=== PATIENT | female | born 1955 | race Caucasian/White ===

== ENCOUNTER → 2016-03-11 | Outpatient (CLI) | payer MEDICARE ==
[2016-03-11 10:12] LABS: EKG EKG PERFORMED
[2016-03-11 10:43] LABS: Appearance,Urine Cloudy (Clear); Bacteria,Urine Rare /hpf; Bilirubin,Urine Negative (Negative); Calcium Oxalate Crystals,Urine Many /hpf; Glucose,Urine (UA) Negative (Negative); Ketones,Urine Trace (Negative); Leukocyte Esterase,Urine Moderate (Negative); Mucus,Urine Rare /hpf; Nitrite,Urine Negative (Negative); PH, Urine 5.5 (5.0-8.0); Particle Count 6170; Protein,Urine Trace (Negative); RBC,Urine 5 /hpf (0-5); Specific Gravity,Urine 1.028 (1.001-1.035); Squamous Epithelial Cell,Urine 12 /hpf (0-4); UA Billing (MACRO vs. MICRO) MICRO; WBC,Urine 3 /hpf (0-5)
[2016-03-11 10:44] LABS: CH 30.4; CHCM 33.2; HCT 38.6 % (34.0-46.0); HDW 2.58; HGB 12.7 gm/dL (11.4-16.0); MCH 30.5 pg (25.0-35.0); MCV 92.4 fL (80.0-100.0); Mean Platelet Volume 7.4; RBC 4.18 m/uL (3.80-5.40); RDW 13.8 % (11.5-15.5); WBC 6.7 k/uL (3.8-10.6)
[2016-03-11 10:51] LABS: ALT 33 U/L (9-52); AST 23 U/L (14-36); Alkaline Phosphatase 69 U/L (38-126); Anion Gap 9 mmol/L; Blood Urea Nitrogen 17 mg/dL (7-17); Calcium 9.8 mg/dL (8.4-10.2); Carbon Dioxide 29 mmol/L (22-30); Chloride 103 mmol/L (98-107); Glucose 94 mg/dL (74-99); Non-African American GFR(MDRD) >60 (>60 ml/min/1.73 sqM); Potassium 4.2 mmol/L (3.5-5.1); Sodium 141 mmol/L (137-145); Total Bilirubin 0.5 mg/dL (0.2-1.3); Total Protein 7.3 g/dL (6.3-8.2)
--- NOTE | 2016-03-11 10:51 | XR ---
EXAMINATION TYPE: XR chest 2V DATE OF EXAM: 03/11/2016 10:46 AM COMPARISON: NONE HISTORY: Shortness of breath TECHNIQUE: Frontal and lateral views of the chest are obtained. FINDINGS: Scattered senescent parenchymal changes noted. Hyperinflation compatible with COPD. No evidence for infiltrate. No evidence for atelectasis. Heart size is stable. Mediastinal structures are stable and grossly unremarkable. No evidence for hilar prominence. Degenerative changes dorsal spine. IMPRESSION: 1. No evidence for acute pulmonary disease.
== END | disposition home or self-care (01) ==
LOC: LABWHC1 10:00
PROVIDERS: ATTEND Neurological Surgery
DX: Z01.818 Encounter for other preprocedural examination (principal); Z01.812 Encounter for preprocedural laboratory examination; M48.06 Spinal stenosis, lumbar region; M79.7 Fibromyalgia; M54.16 Radiculopathy, lumbar region; M21.42 Flat foot [pes planus] (acquired), left foot; M54.9 Dorsalgia, unspecified
CPT/HCPCS: 36415; 71020; 80053; 81001; 85027; 85610; 85730; 87070; 87086; 93005

== ENCOUNTER → 2016-03-22 | Outpatient (CLI) | payer MEDICARE ==
--- NOTE | 2016-03-22 14:44 | US ---
EXAMINATION TYPE: US venous doppler duplex LE BI DATE OF EXAM: 03/22/2016 1:35 PM COMPARISON: NONE CLINICAL HISTORY: Swelling R60.0. Leg swelling S/P back surgery SIDE PERFORMED: Bilateral VESSELS IMAGED: External Iliac Vein (EIV) Common Femoral Vein Deep Femoral Vein Greater Saphenous Vein * Femoral Vein Popliteal Vein Small Saphenous Vein * Proximal Calf Veins (* superficial vessels) TECHNOLOGIST IMPRESSION: wnl Right Leg: Negative for DVT, Probable Armando's Cyst right pop fossa= 6.5 x 1.5 x 3.3 cm Left Leg: Negative for DVT, Probable Armando's Cyst left pop fossa= 5.2 x 1.6 x 3.2 cm Attempted to call Adrien Ugalde NP at Dr Guerrier's office at time of exam, no answer... IMPRESSION: 1. No evidence of deep venous thrombosis lower extremities. 2. Note is made of bilateral popliteal cysts.
== END | disposition home or self-care (01) ==
LOC: RADUSWWP 13:09
PROVIDERS: ATTEND Neurological Surgery
DX: R60.0 Localized edema (principal); Z98.1 Arthrodesis status; Z98.890 Other specified postprocedural states
CPT/HCPCS: 93970

== ENCOUNTER → 2016-05-19 | Outpatient (CLI) | payer MEDICARE ==
--- NOTE | 2016-05-19 15:40 | XR ---
Lumbar spine HISTORY: Back pain 3 views of the lumbar spine There is anterolisthesis grade 1-2 at L4-5, patient is status post L4-5-S1 fusion, laminectomy change is present. Loss of disc height present at the intervertebral levels. Bone mineralization is reduced . Lumbar vertebral bodies show preserved height. Intervertebral spacing material present L4-5. IMPRESSION: Degenerative disc disease, postop change, osteopenia, spondylolisthesis
== END ==
LOC: RADXRMAIN 14:23
PROVIDERS: ATTEND Neurological Surgery
DX: M43.16 Spondylolisthesis, lumbar region (principal); M51.36 Other intervertebral disc degeneration, lumbar region; Z98.1 Arthrodesis status
CPT/HCPCS: 72100

== ENCOUNTER → 2016-06-02 | Outpatient (CLI) | payer MEDICARE ==
--- NOTE | 2016-06-02 09:45 | XR ---
EXAMINATION TYPE: XR abdomen 1V DATE OF EXAM: 06/02/2016 9:34 AM HISTORY: Pain Comparison: 01/18/2016 Single KUB is submitted for interpretation. Findings: Right renal calculi: Recently noted right UPJ calculus not reproduced at this time. Right ureteral calculi: None Visualized. Left renal calculi: None Visualized. Left ureteral calculi: None Visualized. Pelvic calcifications: None Visualized. Bowel gas pattern is unremarkable. No free air. No mass effects. IMPRESSION: 1. No definite evidence for nephrolithiasis or ureterolithiasis.
== END ==
LOC: RADXRMAIN 09:03
PROVIDERS: ATTEND Urology
DX: N20.0 Calculus of kidney (principal)
CPT/HCPCS: 74000

== ENCOUNTER → 2016-06-16 | Outpatient (CLI) | payer MEDICARE ==
--- NOTE | 2016-06-16 13:05 | CT ---
EXAMINATION TYPE: CT abdomen pelvis wo con DATE OF EXAM: 06/16/2016 7:21 AM COMPARISON: NONE INDICATION: Renal stones DLP: 329.70 mGycm, Automated exposure control for dose reduction was used. CONTRAST: 0 mL of Omnipaque 300. Study performed without Oral Contrast TECHNIQUE: Axial images were obtained from above the diaphragm to the pubic rami in the axial plane a t 5 mm thick sections. Reconstructed images are reviewed on the computer in the coronal plane. FINDINGS: Limited CT sections are obtained the lung bases. The lung bases are clear. CT ABDOMEN: Liver: Normal Spleen: Normal Pancreas: Normal Adrenal glands: The adrenal glands are normal. Gallbladder: Normal Kidneys: No masses are evident. No hydronephrosis is present. No cysts are present. No renal or ur eteral stones are identified. Aorta: Vascular calcification is within the aorta. Inferior vena cava: Normal. CT PELVIS: Loops of bowel within the abdomen and pelvis are normal. There are loops of bowel which are incom pletely distended or lack oral contrast limiting their evaluation. Fecal debris is within the distal colon Appendix: Normal as visualized. Urinary bladder: Normal. Genitourinary structures: Osseous structures: No suspicious lytic or sclerotic lesions. Pedicle screws are present L4-S1. IMPRESSIONS: 1. No acute abdominal process. 2. No suspicious renal or ureteral stones evident.
== END | disposition home or self-care (01) ==
LOC: RADCTMAIN 07:03
PROVIDERS: ATTEND Urology
DX: N20.1 Calculus of ureter (principal); R10.9 Unspecified abdominal pain
CPT/HCPCS: 74176

== ENCOUNTER → 2016-08-11 | Outpatient (CLI) | payer MEDICARE ==
--- NOTE | 2016-08-12 11:33 | MM ---
Reason for exam: screening (asymptomatic). Last mammogram was performed 1 year and 1 month ago. History: Patient is postmenopausal and has history of other cancer at age 40. Family history of breast cancer in paternal aunt and premenopausal breast cancer in maternal aunt. Taking estrogen for 5 years 1 month beginning at age 48. Physical Findings: A clinical breast exam by your physician is recommended on an annual basis and results should be correlated with mammographic findings. MG 3D Screening Mammo W/Cad Bilateral CC and MLO view(s) were taken. Prior study comparison: July 21, 2015, bilateral MG 3d screening mammo w/cad. March 19, 2013, bilateral digital screening mammo w/CAD. March 16, 2012, bilateral digital screening mammo w/CAD. The breast tissue is heterogeneously dense. This may lower the sensitivity of mammography. No significant changes when compared with prior studies. ASSESSMENT: Benign, BI-RAD 2 RECOMMENDATION: Routine screening mammogram of both breasts in 1 year.
== END | disposition home or self-care (01) ==
LOC: RADMAMWWP 12:04
PROVIDERS: ATTEND Family Medicine
DX: Z12.31 Encounter for screening mammogram for malignant neoplasm of breast (principal)
CPT/HCPCS: 77063; G0202

== ENCOUNTER → 2016-09-13 | Outpatient (CLI) | payer MEDICARE ==
--- NOTE | 2016-09-13 17:04 | BD ---
EXAMINATION TYPE: MG DEXA axial skeleton. DATE OF EXAM: 09/13/2016 COMPARISON: NONE CLINICAL HISTORY: 61-year-old female postmenopausal screening Height: 64.7 IN Weight: 150 LBS FRAX RISK QUESTIONS: Alcohol (3 or more units per day): NO Family History (Parent hip fracture): NO Glucocorticoids (More than 3mos): NO (Ex: prednisone, prednisolone, methylprednisolone, dexamethasone, and hydrocortisone). History of Fracture in Adulthood: YES RT PATELLA Secondary Osteoporosis: 1. Type 1 Diabetes: NO 2. Hyperthyroidism: NO 3. Menopause before 45: NO AGE 45 4. Malnutrition: NO 5. Chronic liver disease: NO Rheumatoid Arthritis: NO Current Tobacco Use: NO RISK FACTORS HISTORY OF: History of Wrist Fracture: YES LEFT When: AGE 40 Surgery to Spine: AGE 61 When: AGE 61 Active: Postmenopausal woman: AGE 45 Take estrogen and/or progesterone medications: NOT NOW How long: AGE 45 - 52 MEDICATIONS: Additional Medications: HYDROCODONE, CYMBALTA EXAM MEASUREMENTS: Bone mineral densitometry was performed using the [facility]. PT HAD L SPINE SURGERY IN 2016 Bone mineral density about the R hip (g/cm2): 0.851 Bone mineral density about the L hip (g/cm2): 0.897 T Score values are as follows: -----R Neck: -1.3 -----L Neck: -1.0 -----R Total: -1.6 -----L Total: -1.2 Bone mineral density BASELINE IMPRESSION: Osteopenia (T Score between -2.5 and -1 as noted by T score values There is slightly increased risk of fracture and the patient may be considered for treatment. Re-Screen 2-5 years. NOTE: T-SCORE=SD OF THE YOUNG ADULT MEAN.
--- NOTE | 2016-09-14 11:39 | WWHP ---
CHIEF COMPLAINT: The patient is here for her routine gynecologic exam and bone density testing. HPI: This is a 61-year-old G4, P2-0-2-2 with an LMP of 2002. She is status post MARGA BSO for benign reasons. She has been off of ERT since 2013. She is without gynecologic complaints. She has noticed lump in the upper right arm in the area where she had a lipoma removed in the past. PAST MEDICAL HISTORY: Rotator cuff problems, fibromyalgia, osteopenia and restless leg syndrome. MEDICATIONS: Hydrocodone with acetaminophen 5/500 b.i.d. p.r.n., Cymbalta 60 mg 2 daily, Zolpidem 1 q.h.s. p.r.n. for insomnia. ALLERGIES: NO KNOWN DRUG ALLERGIES. PAST SURGICAL HISTORY: Back surgery in 2016, MARGA BSO in 2002 by myself, bilateral shoulder surgery, bilateral arthroscopic knee surgery, left elbow surgery, carpal tunnel surgery, multiple colonoscopies, and the most recent one was in 2010 and right arm lipoma removed in the past. 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 SOCIAL HISTORY: She denies tobacco and drug use and has about two alcohol containing drinks per day. She has been since 2015 and has been with her current boyfriend since 05/05 but does not live with him. FAMILY HISTORY: Unchanged from the 2016 H&P. REVIEW OF SYSTEMS: Weight has been stable. She denies respiratory, cardiac, or GI problems. PHYSICAL EXAM: Blood pressure 143/82, height 5 feet 6 inches, weight 150 pounds. Temperature 98.1, pulse 85. This is a well developed, well nourished white female who is alert and oriented x3 in no acute distress. HEENT is within normal limits. Neck is supple without mass or thyromegaly. Chest and lungs clear to auscultation. Heart: Regular rate and rhythm. Breasts are without mass or discharge. Axillary exam is negative for adenopathy. Back negative for CVA tenderness. Abdomen is soft, nontender without palpable masses. Pelvic exam: External genitalia reveals mild to moderate atrophy without lesions. Vagina reveals mild to moderate atrophy without lesions. There is no evidence of prolapse. Bimanual exam is negative for mass or tenderness. Rectovaginal exam is negative for mass or tenderness and is negative for occult blood. Extremities are nontender, but there is a right arm lipoma in the area over the triceps muscle measuring approximately 4 x 3 cm. This is soft and nontender. This is in the area of her previous scar. IMPRESSION: 1. A 61-year-old menopausal female status post total abdominal hysterectomy with bilateral salpingo-oophorectomy for benign reasons. 2. History of osteopenia. PLAN: 1. PAP smears have been discontinued. 2. Self breast examination was discussed. 3. Mammogram was done on 08/11/16 and this was benign. She will repeat this in one year. 4. Osteoporosis prevention was discussed. she will be doing bone density testing today. 5. Screening colonoscopy is due and she states she will see Dr. Campos for this. She will also see Dr. Campos regarding the recurrence of the right arm lipoma. 6. She will return in one year. ZULEIMA
== END | disposition home or self-care (01) ==
LOC: WWCWWP 13:55
PROVIDERS: ATTEND Obstetrics & Gynecology
DX: M85.80 Other specified disorders of bone density and structure, unspecified site (principal)
CPT/HCPCS: 77080

== ENCOUNTER → 2016-12-29 | Outpatient (CLI) | payer MEDICARE ==
[2016-12-29 11:50] LABS: Basophils # (A) 0.1 k/uL (0-0.2); Basophils % (A) 1 %; CH 30.4; CHCM 32.4; Eosinophils # (A) 0.3 k/uL (0-0.7); Eosinophils % (A) 5 %; HCT 41.4 % (34.0-46.0); HDW 2.45; Luc # (Auto) 0.13; Luc % (Auto) 2; Lymphocytes # (A) 2.6 k/uL (1.0-4.8); Lymphocytes % (A) 37 %; MCH 29.6 pg (25.0-35.0); MCHC 31.4 g/dL (31.0-37.0); MCV 94.3 fL (80.0-100.0); Mean Platelet Volume 6.7; Monocytes # (A) 0.5 k/uL (0-1.0); Monocytes % (A) 6 %; Neutrophils # (A) 3.5 k/uL (1.3-7.7); Neutrophils % (A) 49 %; RBC 4.39 m/uL (3.80-5.40); RDW 13.2 % (11.5-15.5); WBC 7.2 k/uL (3.8-10.6); WBC (Perox) 7.16
[2016-12-29 12:12] LABS: ALT 60 U/L (9-52); AST 38 U/L (14-36); Alkaline Phosphatase 129 U/L (38-126); Anion Gap 9 mmol/L; Blood Urea Nitrogen 20 mg/dL (7-17); Calcium 10.1 mg/dL (8.4-10.2); Carbon Dioxide 25 mmol/L (22-30); Chloride 106 mmol/L (98-107); Glucose 96 mg/dL (74-99); Non-African American GFR(MDRD) >60 (>60 ml/min/1.73 sqM); Potassium 5.3 mmol/L (3.5-5.1); Sodium 140 mmol/L (137-145); Total Bilirubin 0.4 mg/dL (0.2-1.3); Total Protein 7.1 g/dL (6.3-8.2)
== END | disposition home or self-care (01) ==
LOC: LABWHC1 11:09
PROVIDERS: ATTEND Surgery
DX: K80.50 Calculus of bile duct without cholangitis or cholecystitis without obstruction (principal)
CPT/HCPCS: 36415; 80053; 85025

== ENCOUNTER → 2017-09-27 | Outpatient (CLI) | payer MEDICARE ==
--- NOTE | 2017-10-03 17:00 | MM ---
Reason for exam: screening (asymptomatic). Last mammogram was performed 1 year and 2 months ago. History: Patient is postmenopausal and has history of other cancer at age 40. Family history of breast cancer in paternal aunt at age 40 and premenopausal breast cancer in maternal aunt at age 40. Took estrogen for 11 years 1 month beginning at age 48. MG 3D Screening Mammo W/Cad Bilateral CC and MLO view(s) were taken. Prior study comparison: August 11, 2016, bilateral MG 3d screening mammo w/cad. July 21, 2015, bilateral MG 3d screening mammo w/cad. March 19, 2013, bilateral digital screening mammo w/CAD. The breast tissue is heterogeneously dense. This may lower the sensitivity of mammography. There are benign appearing calcifications in the left breast. No suspicious abnormality. No significant new finding since prior exam. ASSESSMENT: Benign, BI-RAD 2 RECOMMENDATION: Routine screening mammogram of both breasts in 1 year.
== END | disposition home or self-care (01) ==
LOC: RADMAMWWP 15:21
PROVIDERS: ATTEND Family Medicine
DX: Z12.31 Encounter for screening mammogram for malignant neoplasm of breast (principal)
CPT/HCPCS: 77063; 77067

== ENCOUNTER 2018-12-30 01:48 | Emergency (ER) | payer MEDICARE ==
[2018-12-30 01:57] VITALS: BP 116/79; PULSE 86; RESP 18; TEMP 97.7
[2018-12-30] MEDS ORDERED: HYDROcodone/APAP 7.5-325MG 1 EACH TAB PO ONE (02:07)
--- NOTE | 2018-12-30 02:10 | ED ---
Fall HPI - General Chief Complaint: Fall Stated Complaint: Broken knee Time Seen by Provider: 12/30/18 02:01 Source: patient Mode of arrival: ambulatory - History of Present Illness Initial Comments: Patient is 63-year-old female presenting to emergency Department with a chief complaint of right knee pain. Patient reports she was painting on a ladder and fell off approximately 3 feet. Patient reports she made initial contact with the right knee. She reports a previous injury of patella fracture on the right knee. Patient has hardware in the right lower extremity due to previous injury. Patient reports the pain is 10/10 and sharp in nature. Patient reports inability to flex or extend the knee. Patient denies taking medication to alleviate the symptoms. - Related Data Home Medications Medication Instructions Recorded Confirmed DULoxetine HCL [Cymbalta] 60 mg PO BID 01/08/16 12/12/16 HYDROcodone/APAP 5-325MG [[place] 1 tab PO QID PRN 01/08/16 12/12/16 5-325] Neupro Patch 2 Mg 1 patch TOPICAL DAILY 12/12/16 12/12/16 Zolpidem [Ambien] 10 mg PO HS PRN 12/12/16 12/12/16 Previous Rx's Medication Instructions Recorded Hydrocodone/Acetaminophen [[place] 1 - 2 each PO Q4HR PRN #30 tab 12/20/16 5-325] Allergies Allergy/AdvReac Type Severity Reaction Status Date / Time aspirin AdvReac Nausea Verified 12/30/18 01:57 ibuprofen [From Motrin] AdvReac Nausea Verified 12/30/18 01:57 morphine AdvReac Vomiting Verified 12/30/18 01:57 Review of Systems ROS Statement: Those systems with pertinent positive or pertinent negative responses have been documented in the HPI. ROS Other: All systems not noted in ROS Statement are negative. Past Medical History Past Medical History: Chest Pain / Angina, Fibromyalgia, GI Bleed, Osteoarthritis (OA) Additional Past Medical History / Comment(s): DEAF RT EAR. DDD IN BACK, RLS, RT URETERAL CALCULUS CURRENTLY. palpitations-WORE A HEART MONITOR FROM , HAS'NT GOTTEN RESULTS BACK YET.COLON POLYPS-NEG,DIVERTICULOSIS, HEMORROIDS,ULCER >30 YEARS AGO, CONSTIPATION, STRESS INCONT OF URINE. History of Any Multi-Drug Resistant Organisms: None Reported Past Surgical History: Back Surgery, Hysterectomy, Orthopedic Surgery Additional Past Surgical History / Comment(s): PÉREZ SHOULDER SURG. PÉREZ KNEE SURG. carpal tunnel RELEASE, RT KNEE WAS SHATTERED HAD SX TO REPAIR, LT KNEE ARTHROSCOPY/MENSCUS SX, COLONOSCOPY/POLYPECTOMY Past Anesthesia/Blood Transfusion Reactions: No Reported Reaction Past Psychological History: No Psychological Hx Reported Smoking Status: Former smoker Past Alcohol Use History: Daily Past Drug Use History: None Reported - Past Family History Mother Family Medical History: Cancer Father Family Medical History: No Reported History General Exam Limitations: no limitations General appearance: alert, in no apparent distress Head exam: Present: atraumatic, normocephalic, normal inspection Eye exam: Present: normal appearance Pupils: Present: normal accommodation Neck exam: Present: normal inspection, full ROM Respiratory exam: Present: normal lung sounds bilaterally Cardiovascular Exam: Present: regular rate, normal rhythm, normal heart sounds Extremities exam: Present: tenderness (Tenderness along the medial aspect of the right knee. Tenderness in the popliteal region as well.), normal capillary refill, joint swelling, other (\ +2 dorsalis pedis and posterior tibialis bilaterally.). Absent: normal inspection (Swelling in the right knee. Palpable deformity on the lateral aspect of her right knee), full ROM (Unable to flex or extend the knee) Back exam: Present: normal inspection, full ROM Neurological exam: Present: alert, oriented X3 Psychiatric exam: Present: normal affect, normal mood Skin exam: Present: warm, intact, normal color Course Vital Signs 12/30/18 01:54 Temperature 97.7 F Pulse Rate 86 Respiratory 18 Rate Blood Pressure 116/79 O2 Sat by Pulse 98 Oximetry Medical Decision Making - Medical Decision Making Patient is 63-year-old female presenting to the emergency department with a chief complaint of right knee pain. Physical examination is indicative of right knee swelling with some soft tissue deformities. Patient has focal tenderness along the medial aspect of the knee in the popliteal region. X-rays indicative of posterior proximal tibial lucency indicating a possible mildly displaced fracture versus chronic changes. Patient given [place]. She reports improvement in symptoms. Knee immobilizer placed. Patient advised to use crutches. Patient will be discharged with a Tylenol 3 starter pack. Patient advised not to drive or operate heavy machinery when taking medication. Strict return parameters were thoroughly discussed patient was understanding and agreeable. Patient advised to follow-up with orthopedics. Patient states she would prefer to go to her orthopedic surgeon who performed the original patellar surgery. Case discussed with physician Disposition Clinical Impression: Fall, Pain and swelling of right knee Disposition: HOME SELF-CARE Condition: Stable Instructions (If sedation given, give patient instructions): Fall Prevention (ED) Additional Instructions: Please follow up with orthopedics. Please return to emergency department if symptoms worsen. Please avoid weightbearing on the right knee. Please use crutches. Is patient prescribed a controlled substance at d/c from ED?: No Referrals: Chente Connell MD [Primary Care Provider] - 1-2 days Time of Disposition: 02:57
--- NOTE | 2018-12-30 02:39 | XR ---
EXAM: XR Right Knee, 3 Views CLINICAL HISTORY: ITS.REASON XR Reason: truma TECHNIQUE: Three views of the right knee. COMPARISON: No relevant prior studies available. FINDINGS: Screws are in place in the patella. Bones/joints: On the lateral view there appears to be lucent lines through the posterior proximal tibia. No significant dislocation. Mild osteoarthrosis. Soft tissues: Unremarkable. IMPRESSION: On the lateral view, there appears to be lucent lines through the posterior proximal tibia. Not well characterized on the anterior view. Cannot exclude mildly displaced fracture versus chronic changes.
[2018-12-30] MEDS ORDERED: ACET/COD 300 MG/30 MG STARTER PACK 6 TAB BTL PO STA (02:54)
== END 2018-12-30 03:24 | disposition home or self-care (01) ==
LOC: EC 01:48
DX: M25.561 Pain in right knee (principal); M25.461 Effusion, right knee; Z79.899 Other long term (current) drug therapy; Z88.5 Allergy status to narcotic agent; Z88.6 Allergy status to analgesic agent; Z87.891 Personal history of nicotine dependence; W11.XXXA Fall on and from ladder, initial encounter
CPT/HCPCS: 99283

== ENCOUNTER → 2019-01-07 | Outpatient (CLI) | payer MEDICARE ==
--- NOTE | 2019-01-07 17:23 | CT ---
EXAMINATION TYPE: CT knee RT wo con DATE OF EXAM: 01/07/2019 COMPARISON: None HISTORY: Right knee injury. CT DLP: 396.6 mGycm Automated exposure control for dose reduction was used. Unenhanced CT of the right knee was performed in the axial coronal and sagittal planes. Bone window settings and soft tissue settings are reviewed . FINDINGS: There is a fracture noted of the lateral tibial plateau with mild fracture depression. Fracture exten ds just medial to the medial intercondylar spine. Fracture depression is estimated at 2 mm. Displacem ent estimated at 1 mm. No additional fractures noted. There is evidence for hemarthrosis. Prior fract ure fixation of the patella. Soft tissue swelling noted. Degenerative joint space narrowing and spurring noted.\ IMPRESSION: 1. Fracture noted of the lateral tibial plateau as discussed above with mild fracture depression and hemarthrosis as noted.
== END | disposition home or self-care (01) ==
LOC: RADCTMAIN 16:36
PROVIDERS: ATTEND Physician Assistant
DX: S82.141A Displaced bicondylar fracture of right tibia, initial encounter for closed fracture (principal); M25.061 Hemarthrosis, right knee

== ENCOUNTER 2019-11-13 20:32 | Emergency (ER) | payer MEDICARE ==
[2019-11-13] MEDS ORDERED: LIDOCAINE 1% INJ 10MG/ML (20 ML MDV) SQ ONE (21:48)
--- NOTE | 2019-11-13 21:55 | ED ---
Head Injury HPI - General Chief complaint: Head Injury Stated complaint: Fall, Chin Lac Time Seen by Provider: 11/13/19 21:00 Source: patient Mode of arrival: wheelchair Limitations: no limitations - History of Present Illness Initial comments: Patient is a 64-year-old female presenting to the emergency department for an injury to her chin after falling in her driveway about 1 hour prior to arrival. Patient states she is walking to the end of her driveway to get her mail when she tripped and fell landing on her chin as well as the left side of her face. Patient denies being on blood thinners. She denies loss of consciousness. She states over the past hour she's been having increasing pain in the left side of her face as well as the left jaw area. She states she has pain with trying to open her jaw. She also admits to stubbing her left great toe. She thinks that's the reason that she fell. She denies any injuries to her lower extremit ies or upper extremities. She denies any abdominal pain, nausea or vomiting. She has no further complaints. - Related Data Home Medications Medication Instructions Recorded Confirmed DULoxetine HCL [Cymbalta] 60 mg PO BID 01/08/16 12/12/16 HYDROcodone/APAP 5-325MG [[place] 1 tab PO QID PRN 01/08/16 12/12/16 5-325] Neupro Patch 2 Mg 1 patch TOPICAL DAILY 12/12/16 12/12/16 Zolpidem [Ambien] 10 mg PO HS PRN 12/12/16 12/12/16 Previous Rx's Medication Instructions Recorded Hydrocodone/Acetaminophen [[place] 1 - 2 each PO Q4HR PRN #30 tab 12/20/16 5-325] Allergies/Adverse reactions: Allergies Allergy/AdvReac Type Severity Reaction Status Date / Time aspirin AdvReac Nausea Verified 11/13/19 20:49 ibuprofen [From Motrin] AdvReac Nausea Verified 11/13/19 20:49 morphine AdvReac Vomiting Verified 11/13/19 20:49 Review of Systems ROS Statement: Those systems with pertinent positive or pertinent negative responses have been documented in the HPI. ROS Other: All systems not noted in ROS Statement are negative. Past Medical History Past Medical History: Chest Pain / Angina, Fibromyalgia, GI Bleed, Osteoarthritis (OA) Additional Past Medical History / Comment(s): DEAF RT EAR. DDD IN BACK, RLS, RT URETERAL CALCULUS CURRENTLY. palpitations-WORE A HEART MONITOR FROM , HAS'NT GOTTEN RESULTS BACK YET.COLON POLYPS-NEG,DIVERTICULOSIS, HEMORROIDS,ULCER >30 YEARS AGO, CONSTIPATION, STRESS INCONT OF URINE. History of Any Multi-Drug Resistant Organisms: None Reported Past Surgical History: Back Surgery, Hysterectomy, Orthopedic Surgery Additional Past Surgical History / Comment(s): PÉREZ SHOULDER SURG. PÉREZ KNEE SURG. carpal tunnel RELEASE, RT KNEE WAS SHATTERED HAD SX TO REPAIR, LT KNEE ARTHROSCOPY/MENSCUS SX, COLONOSCOPY/POLYPECTOMY Past Anesthesia/Blood Transfusion Reactions: No Reported Reaction Past Psychological History: No Psychological Hx Reported Smoking Status: Former smoker Past Alcohol Use History: Daily Past Drug Use History: None Reported - Past Family History Mother Family Medical History: Cancer Father Family Medical History: No Reported History General Exam - General Exam Comments Initial Comments: GENERAL: Patient is well-developed and well-nourished. Patient is nontoxic and in no acute distress, does appear intoxicated. HEAD: Atraumatic, normocephalic. EYES: Pupils equal round and reactive to light, extraocular movements intact, sclera anicteric, conjunctiva are normal. Eyelids were unremarkable. ENT: TMs normal, nares patent, oropharynx clear without exudates. Moist mucous membranes. Patient does have pain with palpation of the left jaw. She is unable to fully open her mouth, secondary to pain. NECK: Normal range of motion, supple without lymphadenopathy or JVD. LUNGS: Unlabored respirations. Breath sounds clear to auscultation bilaterally and equal. No wheezes rales or rhonchi. HEART: Regular rate and rhythm without murmurs, rubs or gallops. ABDOMEN: Soft, nontender, normoactive bowel sounds. No guarding, no rebound. No masses appreciated. : Deferred MUSCULOSKELETAL: Normal extremities with adequate strength and normal range of motion, no pitting or edema. No clubbing or cyanosis. NEUROLOGICAL: Patient is alert and oriented x 3. Motor and sensory are also intact. Cranial nerves II through XII grossly intact. Symmetrical smile. Normal speech, normal gait. PSYCH: Normal mood, normal affect. SKIN: Warm, Dry, normal turgor, no rashes. Patient has a 1 cm laceration to the bottom of her chin, no active bleeding. Limitations: no limitations Course Vital Signs 11/13/19 11/13/19 20:45 23:29 Temperature 97.9 F 97.8 F Pulse Rate 92 80 Respiratory 18 17 Rate Blood Pressure 100/66 115/74 O2 Sat by Pulse 95 95 Oximetry Procedures - Laceration Laceration #1 Consent Obtained: verbal consent Indication: laceration Site: face (chin) Size (cm): 1 Description: linear Depth: simple, single layer Anesthetic Used: lidocaine 1% Anesthesia Technique: local infiltration Amount (mls): 3 Pre-repair: irrigated extensively Type of Sutures: nylon Size of Sutures: 5-0 Number of Sutures: 4 Technique: simple, interrupted Patient Tolerated Procedure: well Medical Decision Making - Medical Decision Making Patient is a 64-year-old female here after falling in her driveway just prior to arrival. She has a 1 cm laceration to her chin, this was cleaned, closed with 4, 5-0 sutures. Patient tolerated procedure well. I did do a brain and facial CT which shows a mildly displaced fracture of the left mandibular condyle with impaction a 5 mm as well as an anterior subluxation of the mandibular condyle. I did discuss these findings with on-call oral surgeon, Dr. Winkler who recommended patient come into his office first thing tomorrow morning. I did discuss these findings with the patient. She can take Tylenol for discomfort. She is in agreement with this plan of care. Patient is stable for discharge. Stitches states he removed in 7-10 days. Return parameters were discussed with the patient she verbalized understanding. Case discussed with Dr. Lyn. Disposition Clinical Impression: Fall, Laceration of chin, Fracture of left condylar process of mandible Disposition: HOME SELF-CARE Condition: Stable Instructions (If sedation given, give patient instructions): Jaw Fracture in Adults (ED) Additional Instructions: Please return to the Emergency Department if symptoms worsen or any other concerns. May take Tylenol for discomfort. Apply ice to the area. Nothing to eat or drink until appointment tomorrow. Follow-up with oral surgeon, Dr. Winkler as discussed. Is patient prescribed a controlled substance at d/c from ED?: No Referrals: Chente Connell MD [Primary Care Provider] - 1-2 days Joe Winkler DDS [STAFF PHYSICIAN] - 1-2 days
--- NOTE | 2019-11-13 23:15 | CT ---
EXAMINATION TYPE: CT brain wo con DATE OF EXAM: 11/13/2019 COMPARISON: None HISTORY: Fall, dizziness, chin laceration. CT DLP: 1522.4 mGycm Automated exposure control for dose reduction was used. Ventricles have normal size. There is no mass effect nor midline shift. There is no sign of intracran ial hemorrhage. The calvarium is intact. There is no evidence of cerebral edema. IMPRESSION: Negative unenhanced head CT scan.
--- NOTE | 2019-11-13 23:25 | CT ---
EXAMINATION TYPE: CT facial bones wo con DATE OF EXAM: 11/13/2019 COMPARISON: None HISTORY: Fall, dizziness, chin laceration. No prior CT DLP: 1522.4 mGycm Automated exposure control for dose reduction was used. Images were obtained from the bottom of the mandible to the top of the frontal sinuses without contra st. There is soft tissue air at the inferior chin consistent with laceration. There is a vertical fractur e through the left mandibular condyle extending to the temporomandibular joint. There is anterior sub luxation of the mandibular condyle on the left side. The zygomatic arches appear normal. The maxilla is intact. There is small mucus retention cyst left maxillary sinus. Nasal bone is intact. Orbital ma rgins are intact. There is no retro-orbital mass. There is normal aeration of the temporal bones. The re is incomplete pneumatization of the right mastoid sinus. There is no evidence of a blowout fracture. The oral pharyngeal structures appear intact. IMPRESSION: There is a mildly displaced fracture of the left mandibular condyle with impaction of 5 mm. There is anterior subluxation of the mandibular condyle. Right mandibular condyle is in normal position and ap pears normal.
[2019-11-13 23:30] VITALS: BP 115/74; PULSE 80; RESP 17; TEMP 97.8
== END 2019-11-14 00:04 | disposition home or self-care (01) ==
LOC: EC 20:32
DX: S02.612A Fracture of condylar process of left mandible, initial encounter for closed fracture (principal); S01.81XA Laceration without foreign body of other part of head, initial encounter; M19.90 Unspecified osteoarthritis, unspecified site; G25.81 Restless legs syndrome; H91.91 Unspecified hearing loss, right ear; Z79.899 Other long term (current) drug therapy; Z88.5 Allergy status to narcotic agent; Z88.6 Allergy status to analgesic agent; Z87.891 Personal history of nicotine dependence; W01.0XXA Fall on same level from slipping, tripping and stumbling without subsequent striking against object, initial encounter; Y93.01 Activity, walking, marching and hiking; Y92.89 Other specified places as the place of occurrence of the external cause
CPT/HCPCS: 70486; 70450; 99283; 12011; J2001

== ENCOUNTER → 2020-02-07 | Outpatient (CLI) | payer MEDICARE ==
--- NOTE | 2020-02-07 12:27 | P.STRESS ---
- Stress Test Note Stress Test Results/Findings: Exam Performed: stress echo exercise Exam Date: 02/07/20 Reason for Exam: CHEST PAIN Height: 5 ft 5 in Weight: 65.9 kg Protocol: STRESS ECHO Stage: 2 Duration of Exercise: 4:00 MINUTES Resting Heart Rate: 93 Resting Blood Pressure: 160/94 Maximum Achieved Heart Rate: 144 Maximum Achieved Blood Pressure: 177/90 85% PMHR: 133 100% PMHR: 156 METS: 5.6 Technologist Comment: Stress Test Results/Findings: Patient underwent exercise stress echo with a Andre protocol treadmill stress test. Patient exercised into Stage 2 for a total of 4 minutes reaching a total of 5.6 METS. Patient's maximum heart rate was 144 which represented 92 % age- predicted maximum heart rate. Stress EKG portion: At baseline patient's EKG showed normal sinus rhythm, normal axis, minimal 0.[address] depression in the inferior leads, Q waves V1 and V2. At peak exercise, EKG showed no significant change from baseline. Stress echo portion: 2-D echocardiogram was performed in the parasternal long, personal short, apical 2 and apical four-chamber views at rest, peak exercise and in recovery. At baseline, echocardiogram showed left ventricular ejection fraction 55% without wall motion abnormalities. With peak exercise, echocardiogram show basal to mid inferior and inferoseptal hypokinesis consistent with ischemia. Conclusions: 1. Abnormal stress echo with exercise induced inferior hypokinesis. 2. Poor exercise capacity.
== END | disposition home or self-care (01) ==
LOC: RADNMMAIN 10:18
PROVIDERS: ATTEND Family Medicine
DX: I51.89 Other ill-defined heart diseases (principal)
CPT/HCPCS: 93351

== ENCOUNTER → 2020-06-30 | Outpatient (CLI) | payer MEDICARE ==
[2020-06-30 08:22] VITALS: BP 133/79; PULSE 84; RESP 18; TEMP 98.1
--- NOTE | 2020-06-30 09:14 | P.HPOB ---
History of Present Illness H&P Date: 06/30/20 Chief Complaint: The patient is here for her routine gynecologic exam and ma mmogram. This is a 65-year-old 0-2 with an LMP of 2002. She is status post MARGA/BSO for benign reasons. She is complaining of vaginal dryness with sexual intercourse. Lubricants have not been very helpful. She is otherwise without complaints. Review of Systems Weight has been stable. She denies respiratory or cardiac problems. GI: She has had some issues with constipation. She denies maltreatment. She has had some issues with falling because of inner ear problems. : she denies any significant problems with urinary leakage. Past Medical History Past Medical History: Chest Pain / Angina, COPD, Fibromyalgia, GI Bleed, Osteoarthritis (OA) Additional Past Medical History / Comment(s): Emphysema. DEAF RT EAR. DDD IN BACK, RLS, RT URETERAL CALCULUS.COLON POLYPS-NEG,DIVERTICULOSIS, HEMORROIDS,ULCER YEARS AGO. Osteopenia. 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 History of Any Multi-Drug Resistant Organisms: None Reported Past Surgical History: Back Surgery, Hysterectomy, Orthopedic Surgery Additional Past Surgical History / Comment(s): MARGA BSO 2002. PÉREZ SHOULDER SURG. PÉREZ KNEE SURG. carpal tunnel RELEASE, RT KNEE WAS SHATTERED HAD SX TO REPAIR, LT KNEE ARTHROSCOPY/MENSCUS SX, COLONOSCOPY 2018(next after 5yr). Past Anesthesia/Blood Transfusion Reactions: No Reported Reaction Past Psychological History: No Psychological Hx Reported Smoking Status: Former smoker Past Alcohol Use History: Daily Additional Past Alcohol Use History / Comment(s): SMOKED FOR 25 YEARS-1 PPD, QUIT 2002 Past Drug Use History: Marijuana Additional Drug Use History / Comment(s): Edible marijuana. She denies smoking marijuana. Additional History: She has been since 2019 and this is her third marriage. She has 3 grandchildren and Omalley in [place]. - Past Family History Mother Family Medical History: Cancer Additional Family Medical History / Comment(s): Colon cancer. Parkinson's disease. A maternal aunt had breast cancer. Father Family Medical History: Cancer Additional Family Medical History / Comment(s): Lungs cancer. A paternal aunt had breast cancer. Medications and Allergies Home Medications Medication Instructions Recorded Confirmed Type DULoxetine HCL [Cymbalta] 60 mg PO BID 01/08/16 06/30/20 History Hydrocodone/Acetaminophen [[place] 1 - 2 each PO Q4HR PRN #30 tab 12/20/16 06/30/20 Rx 5-325] Sifrol Er 1 tab PO HS 06/30/20 06/30/20 History Allergies Allergy/AdvReac Type Severity Reaction Status Date / Time aspirin AdvReac Nausea Verified 06/30/20 08:13 ibuprofen [From Motrin] AdvReac Nausea Verified 06/30/20 08:13 morphine AdvReac Vomiting Verified 06/30/20 08:13 Exam Vital Signs Temp Pulse Resp BP Pulse Ox 06/30/20 08:17 98.1 F 84 18 133/79 100 Intake and Output 06/29/20 06/30/20 06/30/20 22:59 06:59 14:59 Other: Weight 68.492 kg Height 5 feet 5 inches, weight 151 pounds, BMI 25.1. This is a well-developed well-nourished white female who is alert and oriented times 3 in no acute distress. HEENT: Within normal limits. NECK: Supple without mass or thyromegaly. CHEST AND LUNGS: Clear to auscultation. HEART: Regular rate and rhythm. BREASTS: Are without mass or discharge. AXILLARY EXAM: Negative for adenopathy. BACK: Negative for CVA tenderness. ABDOMEN: Soft, nontender, without palpable masses. PELVIC EXAM: External genitalia appears normal with mild to moderate atrophy. Vagina appears normal with mild to moderate atrophy. There is no evidence of prolapse. Bimanual examination is negative for mass or tenderness. RECTAL EXAM: Rectovaginal exam is negative for mass or tenderness and is negative for occult blood. EXTREMITIES: Nontender. IMPRESSION: 1. 65-year-old menopausal female status post MARGA/BSO with normal gynecologic exam. 2. Vaginal dryness with sexual intercourse secondary to genital atrophy. 3. History of osteopenia. PLAN: 1. Pap smears have been discontinued. 2. Self breast awareness was discussed with the patient. 3. Screening mammogram will be done today. 4. Trial of estradiol vaginal cream, 1 g into the vagina 2 times weekly for vaginal dryness. The electronic prescription will be sent to [facility] pharmacy. 5. Osteoporosis prevention was discussed. I have stressed the importance of adequate calcium, vitamin D and regular exercise. Recommended amounts of calcium and vitamin D were also discussed. Bone density testing will be done today. 6. We have discussed ways of dealing with constipation. And suggestions were given. 7. She did receive her flu shot last fall and did complete her Covid vaccination series. 8. The patient was advised to return in 1-2 years for her well woman examination.
--- NOTE | 2020-06-30 12:47 | BD ---
EXAMINATION TYPE: Axial Bone Density DATE OF EXAM: 06/30/2020 COMPARISON: 09.13.2016 CLINICAL HISTORY: 65 YR OLD FEMALE.....ICD-10 CODE: Z78.0 POST MENOPAUSAL Height: 64 Weight: 149 FRAX RISK QUESTIONS: History of Fracture in Adulthood: YES Secondary Osteoporosis: YES 3. Menopause before 45: YES, AT AGE 40 RISK FACTORS HISTORY OF: HX OF LT HAND, AND RT KNEE, JAW BONE, AND ANKLE ALL OVER AGE 50 Surgery to Spine FUSION AND HARDWARE, L4 AND L5 ABOUT 4 YRS AGO Postmenopausal woman: YES, AT ABOUT AGE 40 YRS OLD, TOTAL HYST Take estrogen and/or progesterone medications: YES, FOR ONLY 1 YR, NONE NOW Frequent falls: YES, BALANCE PROBLEMS, LOST HEARING AFTER FLU SHOT Hyperparathyroidism: NO Adrenal Insufficiency: NO MEDICATIONS: Prednisone or other steroids: NEW DIAGNOSIS OF EMPHYSEMA. HAVE NOT USED INHALER AND STEROIDS YET Additional Medications: MULTIVITAMIN, Additional History: MULTIPLE FXS AND EMPHYSEMA, ARTHRITIS EXAM MEASUREMENTS: Bone mineral densitometry was performed using the [employer] System. Bone mineral density about the R hip (g/cm2): 0.748 Bone mineral density about the L hip (g/cm2): 0.838 T Score values are as follows: -----R Neck: -1.7 -----L Neck: -1.3 -----R Total: -2.1 -----L Total: -1.3 Bone mineral density has: Decreased -5.0% since study of: 09.13.2016 FRAX%s: THERE IS A 16.3% CHANCE FOR A MAJOR OSTEOPOROTIC FX AND A 2.1% FOR HIP......PROBABILITY FO R FX IN 10 YRS TIME Bone mineral density about the L Wrist (g/cm2): 0.458 T Score values are as follows: -----Dist. R+U: -1.7 -----Prox. R+U: -2.5 -----Radius total: -3.0 Bone mineral density FIRST SCAN OF WRIST.... IMPRESSION: Osteoporosis (T Score less than -2.5). There is increased fracture risk and therapy is usually indicated based on age. Re-Screen 1-2 years. NOTE: T-SCORE=SD OF THE YOUNG ADULT MEAN.
--- NOTE | 2020-07-01 13:58 | MM ---
Reason for exam: screening (asymptomatic). Last mammogram was performed 2 years and 9 months ago. History: Patient is postmenopausal and has history of other cancer at age 40. Family history of breast cancer in paternal aunt at age 40 and premenopausal breast cancer in maternal aunt at age 40. Took estrogen for 11 years 1 month beginning at age 48. Physical Findings: A clinical breast exam by your physician is recommended on an annual basis and results should be correlated with mammographic findings. MG 3D Screening Mammo W/Cad Bilateral CC and MLO view(s) were taken. Prior study comparison: September 27, 2017, bilateral MG 3d screening mammo w/cad. August 11, 2016, bilateral MG 3d screening mammo w/cad. The breast tissue is heterogeneously dense. This may lower the sensitivity of mammography. No significant changes when compared with prior studies. ASSESSMENT: Benign, BI-RAD 2 RECOMMENDATION: Routine screening mammogram of both breasts in 1 year.
== END ==
LOC: WWCWWP 08:01
PROVIDERS: ATTEND Obstetrics & Gynecology
DX: Z01.419 Encounter for gynecological examination (general) (routine) without abnormal findings (principal); N95.2 Postmenopausal atrophic vaginitis; Z90.710 Acquired absence of both cervix and uterus; Z90.722 Acquired absence of ovaries, bilateral; Z87.39 Personal history of other diseases of the musculoskeletal system and connective tissue; Z78.0 Asymptomatic menopausal state; J44.9 Chronic obstructive pulmonary disease, unspecified; M19.90 Unspecified osteoarthritis, unspecified site; Z80.3 Family history of malignant neoplasm of breast; Z88.6 Allergy status to analgesic agent; Z87.891 Personal history of nicotine dependence; Z12.31 Encounter for screening mammogram for malignant neoplasm of breast
CPT/HCPCS: 77063; 77067; 77080

== ENCOUNTER → 2021-09-21 | Outpatient (CLI) | payer MEDICARE ==
[2021-09-21 11:36] VITALS: BP 170/94; PULSE 94; RESP 17; TEMP 98.7
--- NOTE | 2021-09-21 12:13 | P.HPOB ---
History of Present Illness H&P Date: 09/21/21 Chief Complaint: The patient is here for her routine gynecologic exam. This is a 66-year-old 022 with an LMP of 2002. The patient is status post MARGA/BSO for benign reasons. The patient has not been sexually active because of discomfort with intercourse. She would like to re-start using estrogen vaginal cream. She decided not to use prescription medication for osteoporosis. Review of Systems The patient has gained 6 pounds over the last year. She denies respiratory or cardiac problems. GI: She had a colonoscopy last week and did not have a bowel movement until today when she started having loose stools. She denies abdominal pain. Past Medical History Past Medical History: Chest Pain / Angina, COPD, Fibromyalgia, GI Bleed, Osteoarthritis (OA) Additional Past Medical History / Comment(s): Emphysema. DEAF RT EAR. DDD IN BACK, RLS, RT URETERAL CALCULUS.COLON POLYPS-NEG,DIVERTICULOSIS, HEMORROIDS,ULCER YEARS AGO. Osteoporosis. 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 History of Any Multi-Drug Resistant Organisms: None Reported Past Surgical History: Back Surgery, Hysterectomy, Orthopedic Surgery Additional Past Surgical History / Comment(s): MARGA BSO 2002. PÉREZ SHOULDER SURG. PÉREZ KNEE SURG. carpal tunnel RELEASE, RT KNEE WAS SHATTERED HAD SX TO REPAIR, LT KNEE ARTHROSCOPY/MENSCUS SX, COLONOSCOPY 2021(next after 5yr). Past Anesthesia/Blood Transfusion Reactions: No Reported Reaction Past Psychological History: No Psychological Hx Reported Additional Psychological History / Comment(s): PT LIVES ALONE IN 2 STORY HOME THAT HAS 5 PORCH STEPS. NO PETS. PT IS INDEPENDANT. Smoking Status: Former smoker Past Alcohol Use History: Daily (1 drink per day) Additional Past Alcohol Use History / Comment(s): SMOKED FOR 25 YEARS-1 PPD, QUIT 2002 Past Drug Use History: Marijuana Additional Drug Use History / Comment(s): Edible marijuana. She denies smoking marijuana. Additional History: She has been since 2019 and this is her third marriage. She has 3 grandchildren and Omalley in [place]. - Past Family History Mother Family Medical History: Cancer Additional Family Medical History / Comment(s): Colon cancer. Parkinson's disease. A maternal aunt had breast cancer. Father Family Medical History: Cancer Additional Family Medical History / Comment(s): Lungs cancer. A paternal aunt had breast cancer. Medications and Allergies Home Medications Medication Instructions Recorded Confirmed Type DULoxetine HCL [Cymbalta] 60 mg PO BID 01/08/16 09/21/21 History Hydrocodone/Acetaminophen [[place] 1 - 2 each PO Q4HR PRN #30 tab 12/20/16 09/21/21 Rx 5-325] Estradiol Cream [Estrace Cream 1 gm VAGINAL DIRECTED #1 tube 06/30/20 09/21/21 Rx 0.01%] Sifrol Er 1 tab PO HS 06/30/20 09/21/21 History Allergies Allergy/AdvReac Type Severity Reaction Status Date / Time aspirin AdvReac Nausea Verified 09/21/21 11:31 ibuprofen [From Motrin] AdvReac Nausea Verified 09/21/21 11:31 morphine AdvReac Vomiting Verified 09/21/21 11:31 Exam Vital Signs Temp Pulse Resp BP Pulse Ox 09/21/21 11:32 98.7 F 94 17 170/94 97 Intake and Output 09/20/21 09/21/21 09/21/21 22:59 06:59 14:59 Other: Weight 71.214 kg Height 5 feet 6 inches, weight 157 pounds, BMI 25.3. This is a well-developed well-nourished white female who is alert and oriented times 3 in no acute distress. HEENT: Within normal limits. NECK: Supple without mass or thyromegaly. CHEST AND LUNGS: Clear to auscultation. HEART: Regular rate and rhythm. BREASTS: Are without mass or discharge. AXILLARY EXAM: Negative for adenopathy. BACK: Negative for CVA tenderness. ABDOMEN: Soft, nontender, without palpable masses. PELVIC EXAM: External genitalia appears normal with moderate atrophy. Vagina appears normal to moderate atrophy. There is no evidence of prolapse. Bimanual examination is negative for mass or tenderness. RECTAL EXAM: Was refused by the patient. She declined this test because she states she just recently had a colonoscopy and has also been having loose stools. EXTREMITIES: Nontender. IMPRESSION: 1. 66-year-old menopausal female status post MARGA/BSO for benign reasons with normal gynecologic exam. 2. History of osteoporosis. The patient is declining prescription medication for this. 3. Dyspareunia with vaginal dryness. The patient would like to restart using estrogen vaginal cream. PLAN: 1. Pap smears have been discontinued. 2. Self breast awareness was discussed with the patient. We have also discussed symptoms associated with inflammatory breast cancer. 3. Screening mammogram is scheduled for tomorrow. The order slip was given to the patient for this. 4. Osteoporosis management was discussed. I have stressed the importance of adequate calcium, vitamin D and regular exercise. Recommended amounts of calcium and vitamin D were also discussed. We have again discussed prescription medication for osteoporosis and she is declining this. She will call if she changes her mind. We will plan on repeating bone density testing in 1 year and at that time she can again reconsider medication. 5. Estradiol vaginal cream 1 g 2 times weekly. The electronic prescription will be sent to [facility] pharmacy. 6. She was advised to return in one year for her annual well woman exam.
== END | disposition home or self-care (01) ==
LOC: WWCWWP 11:25
PROVIDERS: ATTEND Obstetrics & Gynecology
DX: Z53.9 Procedure and treatment not carried out, unspecified reason (principal)

== ENCOUNTER → 2021-09-22 | Outpatient (CLI) | payer MEDICARE ==
--- NOTE | 2021-09-23 07:49 | MM ---
Reason for Exam: Screening (asymptomatic). Last mammogram was performed 1 year(s) and 3 month(s) ago. Patient History: Menarche at age 13. First Full-Term at age 26. Left ovary removed at age 48. Right ovary removed at age 48. Hysterectomy at age 48. Postmenopausal. Other cancer, age 40. Estrogen for 11 years, 1 month, from age 48 until age 59. Paternal aunt had breast cancer, age 40. Maternal aunt had breast cancer, age 40. Risk Values: Suellen 5 year model risk: 1.9%. NCI Lifetime model risk: 6.7%. Prior Study Comparison: 08/11/2016 Bilateral Screening Mammogram, [facility]. 09/27/2017 Bilateral Screening Mammogram, [facility]. 06/30/2020 Bilateral Screening Mammogram, [facility]. Tissue Density: The breast tissue is heterogeneously dense. This may lower the sensitivity of mammography. Findings: Analyzed By CAD. There is no suspicious group of microcalcifications or new suspicious mass in either breast. Stable benign calcification within the left breast. No significant change from prior examination. Overall Assessment: Benign, BI-RAD 2 Management: Screening Mammogram of both breasts in 1 year. A clinical breast exam by your physician is recommended on an annual basis and results should be correlated with mammographic findings. Electronically signed and approved by: Rick Aguilera D.O.
== END | disposition home or self-care (01) ==
LOC: RADMAMWWP 08:03
PROVIDERS: ATTEND Obstetrics & Gynecology
DX: Z12.31 Encounter for screening mammogram for malignant neoplasm of breast (principal)
CPT/HCPCS: 77063; 77067

== ENCOUNTER → 2022-01-25 | Outpatient (CLI) | payer MEDICARE ==
--- NOTE | 2022-01-25 09:13 | CT ---
EXAMINATION TYPE: CT shoulder LT wo con DATE OF EXAM: 01/25/2022 COMPARISON: None HISTORY: 66-year-old female M19.012, pain, Primary osteoarthritis, left shoulder TECHNIQUE: Contiguous axial scanning of the left shoulder without IV contrast. Coronal and sagittal r econstructions performed. 3-D reconstructions generated on a dedicated independent workstation. CT DLP: 300.4 mGycm Automated exposure control for dose reduction was used. FINDINGS: Prominent bony spurring from the anterior greater tuberosity. The majority of the cuff appears to be intact. There may be minimal fatty streaks in the supraspinatus muscle belly but overall rotator cuff tendon volume is maintained. Large spur from the anterior acromion or ossification along the acromio clavicular ligament. There is severe degenerative change at the glenohumeral joint. Mild overall glenoid bone loss. Slat Pickler ior subluxation of the glenohumeral joint has resulted in a biconvex contour due to bony remodeling, refer to axial image 251. There is 12 degrees of retroversion along the posterior convex portion. Aga in, refer to axial image 251. Prominent fluid along the bicipital groove. The AC joint appears intact. No os acromiale. No Hill-Sachs deformity. Underlying mild emphysematous change in the visualized left hemithorax. IMPRESSION: 1. SEVERE LEFT GLENOHUMERAL JOINT OA. THERE IS SLIGHT POSTERIOR SUBLUXATION AT THE JOINT RESULTING IN PREFERENTIAL BONY REMODELING ALONG THE POSTERIOR HALF OF THE BONY GLENOID WITH OVERALL MILD GLENOID BONE LOSS AND 12 DEGREES OF RETROVERSION ALONG THE POSTERIOR CONVEX PORTION (AXIAL IMAGE 251). 2. THERE MAY BE A PARTIAL TEAR OF THE ANTERIOR SUPRASPINATUS TENDON. THE VAST MAJORITY OF THE CUFF AP PEARS TO BE INTACT THOUGH ASSESSMENT IS LIMITED BY CT.
== END | disposition home or self-care (01) ==
LOC: RADCTMAIN 06:50
PROVIDERS: ATTEND Orthopaedic Surgery Sports Medicine
DX: M19.012 Primary osteoarthritis, left shoulder (principal); S43.022A Posterior subluxation of left humerus, initial encounter; M50.31 Other cervical disc degeneration, high cervical region; M50.33 Other cervical disc degeneration, cervicothoracic region

== ENCOUNTER → 2022-02-08 | Outpatient (CLI) | payer MEDICARE ==
[2022-02-08 13:43] LABS: Partial Thromboplastin Time 24.2 sec (22.0-30.0); Prothrombin Time 10.2 sec (9.0-12.0)
[2022-02-08 14:52] LABS: Appearance,Urine Clear (Clear); Bilirubin,Urine Negative (Negative); Blood,Urine Negative (Negative); Color,Urine Yellow; Glucose,Urine (UA) Negative (Negative); Ketones,Urine Negative (Negative); Leukocyte Esterase,Urine Negative (Negative); Nitrite,Urine Negative (Negative); Protein,Urine Negative (Negative); Specific Gravity,Urine 1.019 (1.001-1.035); Urobilinogen,Urine <2.0 mg/dL (<2.0)
[2022-02-08 18:00] LABS: HCT 38.9 % (37.2-46.3); HGB 13.2 g/dL (12.0-15.0); MCH 30.5 pg (27.0-32.0); MCHC 33.9 g/dL (32.0-37.0); MCV 89.8 fL (80.0-97.0); Mean Platelet Volume 9.6 fL (9.5-12.2); NRBC Per 100 WBC 0 /100 WBCS (0.0-0.0); Platelet Count 382 X 10*3/uL (140-440); RBC 4.33 X 10*6/uL (4.10-5.20); RDW 13.8 % (11.5-14.5); WBC 6.43 X 10*3/uL (4.50-10.00)
[2022-02-08 18:52] LABS: African American GFR (CKD) 104.6 (60.0-200.0); Albumin 4.7 g/dL (3.8-4.9); Albumin/Globulin Ratio 2.04 (1.60-3.17); Anion Gap 11.7 mmol/L (10.00-18.00); BUN/Creat Ratio 27.86 Ratio (12.00-20.00); Blood Urea Nitrogen 19.5 mg/dL (9.0-27.0); Calcium 9.5 mg/dL (8.7-10.3); Carbon Dioxide 23.3 mmol/L (20.0-27.5); Globulin 2.3 g/dL (1.6-3.3); Non-African American GFR(CKD) 90.3 (60.0-200.0); Potassium 4.5 mmol/L (3.5-5.5); Total Bilirubin 0.5 mg/dL (0.30-1.20)
== END | disposition home or self-care (01) ==
LOC: LABPAT 11:55
PROVIDERS: ATTEND Orthopaedic Surgery Sports Medicine
DX: Z01.812 Encounter for preprocedural laboratory examination (principal); M19.012 Primary osteoarthritis, left shoulder
CPT/HCPCS: 80053; 81003; 85027; 85610; 85730; 87070; 93005

== ENCOUNTER 2022-03-03 05:40 | Observation (INO) | payer MEDICARE ==
[2022-02-28 16:00] VITALS: BMI 25.4
[~2022-03-03 05:40] MED LIST: ACETAMINOPHEN TAB 500 MG TAB PO PRN; GABAPENTIN 300 MG CAP PO PRN; MELOXICAM 7.5 MG TAB PO PRN; ONDANSETRON 4 MG/2 ML VIAL IVP PRN; TRANEXAMIC ACID IN NACL,ISO-OS 1,000 MG in SALINE 1 100ML.BAG IVPB PRN
[2022-03-03] MEDS ORDERED: DEXAMETHASONE SOD PHOSPHATE 4 MG/ML 1 ML VIAL IV ONE (05:53)
[2022-03-03] MEDS ORDERED: ONDANSETRON 4 MG/2 ML VIAL IVP ONE (05:53)
[2022-03-03] MEDS ORDERED: LIDOCAINE 1% (10MG/ML) FOR IV START INTRADERMA PRN (05:53)
[2022-03-03] MEDS: LACTATED RINGERS 1,000 ML IV SCH ×3 (05:59→22:10)
[2022-03-03] MEDS ORDERED: MIDAZOLAM 2 MG/2 ML VIAL IVP ONE (06:42)
[2022-03-03] MEDS ORDERED: HYDROmorphone 0.5 MG/0.5 ML SYRINGE IVP PRN ×3 (07:00→09:29)
[2022-03-03] MEDS ORDERED: PHENYLEPHRINE-0.9% NACL SYG 1,000 MCG/10 ML SYRINGE ONE (07:04)
[2022-03-03] MEDS ORDERED: DEXAMETHASONE SOD PHOSPHATE 4 MG/ML 1 ML VIAL ONE (07:04)
[2022-03-03] MEDS ORDERED: LIDOCAINE 2% INJ 20 MG/ML (2 ML VIAL) ONE (07:04)
[2022-03-03] MEDS ORDERED: GLYCOPYRROLATE 0.2 MG/ML 2 ML VIAL ONE (07:04)
[2022-03-03] MEDS ORDERED: SUCCINYLCHOLINE CHLORIDE 200 MG/10 ML VIAL IV ONE (07:04)
[2022-03-03] MEDS ORDERED: PROPOFOL 10 MG/ML 20 ML VIAL IV ONE (07:04)
[2022-03-03] MEDS ORDERED: fentaNYL (PF) 50 MCG/ML 2 ML AMP ONE (07:04)
[2022-03-03] MEDS ORDERED: NEOSTIGMINE 1 MG/ML 10 ML VIAL ONE (07:04)
[2022-03-03] MEDS ORDERED: TRANEXAMIC ACID IN NACL,ISO-OS 1,000 MG/100 ML BAG ONE (07:04)
[2022-03-03] MEDS ORDERED: ROCURONIUM 10 MG/ML (5 ML VIAL) IV ONE (07:04)
[2022-03-03] MEDS ORDERED: ROPIVACAINE 5 MG/ML 30 ML VIAL ONE (07:04)
[2022-03-03] MEDS ORDERED: VANCOMYCIN 1,000 MG VIAL MISCELLANE ONE (07:42)
[2022-03-03] MEDS ORDERED: ceFAZolin 1,000 MG in SODIUM CHLORIDE 0.9% 1,000 ML IRRIGATION ONE (07:42)
[2022-03-03] MEDS ORDERED: METOCLOPRAMIDE 5 MG/ML 2 ML VIAL IVP PRN (09:29)
[2022-03-03] MEDS ORDERED: TEMAZEPAM 15 MG CAP PO PRN (09:29)
[2022-03-03] MEDS ORDERED: ONDANSETRON 4 MG/2 ML VIAL IVP PRN (09:29)
[2022-03-03] MEDS ORDERED: SENNOSIDES-DOCUSATE SODIUM 1 EACH TAB PO PRN (09:29)
[2022-03-03] MEDS ORDERED: diphenhydrAMINE 25 MG CAP PO PRN (09:29)
[2022-03-03] MEDS ORDERED: HYDROcodone/APAP 10-325MG 1 EACH TAB PO PRN ×2 (09:33)
--- NOTE | 2022-03-03 10:19 | XR ---
EXAMINATION TYPE: XR shoulder limited LT DATE OF EXAM: 03/03/2022 COMPARISON: NONE HISTORY: 67-year-old female postoperative evaluation TECHNIQUE: Single AP view FINDINGS: Image shows placement of reverse left shoulder arthroplasty. There is some widening at the AC joint but no abnormal offset. Postsurgical change within reverse left shoulder arthroplasty. Both glenosphere and humeral stem components of the prosthesis appear well seated with appropriate alignme nt. Scattered soft tissue air related to recent operation. IMPRESSION: 1. Uncomplicated appearance to the reverse left total shoulder arthroplasty. 2. AC joint widening could be postsurgical or old posttraumatic change. Clinically correlate.
--- NOTE | 2022-03-03 10:48 | P.ANPRN ---
Procedure Note - Anesthesia - Nerve Block Performed Left Interscalene Single Time Out Performed: Yes Date of Procedure: 03/03/22 Procedure Start Time: 06:41 Procedure Stop Time: 06:46 Location of Patient: PreOp Indication: Acute Post-Operative Pain, Requested by Surgeon Sedation Type: Sedate with meaningful contact maintained Preparation: Sterile Prep Position: Supine Needle Types: Pajunk Needle Gauge: 21 Ultrasound used to visualize needle placement: Yes Ultrasound used to observe medication spread: Yes Blood Aspirated: No Pain Paresthesia on Injection Noted: No Resistance on Injection: Normal Image Stored and Saved: Yes Events: Uneventful and Well Tolerated (Ropivacaine 0.5% 20 mL plus dexamethasone 4 mg)
--- NOTE | 2022-03-03 11:01 | OP ---
OPERATIVE REPORT BELL VALET: Wilman Kelley PA-C PREOPERATIVE DIAGNOSIS: Left shoulder osteoarthrosis. POSTOPERATIVE DIAGNOSIS: Left shoulder osteoarthrosis. OPERATION: Left reverse total shoulder arthroplasty. ANESTHESIA: General endotracheal. ESTIMATED BLOOD LOSS: 100 mL. DRAINS: None. COMPLICATIONS: None apparent. DISPOSITION: Postanesthesia care unit. INDICATIONS FOR PROCEDURE: Yasmine is a very pleasant 67-year-old female with longstanding left shoulder pain. She had a previous open rotator cuff repair done many years ago. Workup including x- rays and CT scan revealed advanced osteoarthrosis of the left shoulder. Rotator cuff arthropathy was evident as well as a B2 type glenoid. At this point, she feels that she has failed conservative management and she would like to proceed with operative intervention. The risks of procedure were discussed in detail. These risks included, but are not limited to risk of infection, nerve damage, bleeding, pain, instability in the shoulder, loosening of the implants and deep infection. There is also risk of deep vein thrombosis which could lead to fatal pulmonary embolism. The patient understands the risks. All of her questions with regard to the procedure were answered to her satisfaction. Appropriate informed consent was obtained. DESCRIPTION OF PROCEDURE: The patient was identified in the preoperative holding area. Surgical site was marked by both the patient and myself. She was given 2 grams of Ancef IV prophylactic purposes. She was then transported to the operative suite. She was placed supine on the operating room table. A general anesthetic was then administered and dosed per the Anesthesia Department without apparent complication. Examination under anesthesia was then performed of the left shoulder. She had elevation to 120 degrees. External rotation to the side was to 30 degrees. The patient was then placed into the beach chair position well-padded in preparation for surgery. Great care was taken to ensure that her cervical spine was in neutral alignment, well-padded and maintained that way throughout the operative procedure. Great care was also taken to ensure that her legs were appropriately padded as well. The patient's left upper extremity was then prepped and draped in usual sterile fashion. Standard surgical pause was undertaken to ensure that we were operating the correct site and that appropriate preoperative antibiotics were given. All staff in the room were in agreement and we proceeded. The acromion, AC joint, clavicle and coracoid were marked with a surgical pen. A planned incision starting at the level of the clavicle and extending distally over the deltopectoral interval approximately 1 cm lateral to the coracoid was marked with a surgical pen. The incision was then made with a 10 blade scalpel. Dissection was carried down sharply to the deltoid fascia. The deltopectoral interval was then identified at the level of clavicle. A small band retractor was then placed onto the proximal deltoid. I then released the deltoid fascia on the lateral aspect of the cephalic vein. The vein was then left in its bed medially. The cephalic vein was then protected throughout the entire case. I then identified the clavipectoral fascia. This was incised proximally to the level of the coracoacromial ligament. The coracoacromial ligament was left intact. We then used my finger to spread the interval between the conjoint tendon and subscapularis. I felt for the axillary nerve which was readily palpable. I then cleared the subacromial and subdeltoid spaces of bursal and scar tissue. I then utilized a brown retractor to hold the deltoid and expose the humeral head. I then proceeded to release the subscapularis in the anterior inferior shoulder capsule. The rotator cuff was inspected. She had chronic tearing of the supraspinatus. The rotator interval was identified. The course of the biceps tendon was also identified. I then released the rotator interval. This released at the base of the coracoid and then all laterally. The subscapularis and the capsule were then released intratendinously. The subscapularis and capsule release extended distally in a lazy-S fashion approximately 1 cm medial to the biceps tendon. I then continued to release the capsule along the inferior neck in a vertical fashion to approximately the 6 o'clock position. Great care was taken to ensure the capsule was always visualized as it was released as to avoid injuring the axillary nerve root. I then brought the Townsend head turbine operator with the arm externally rotated and abducted. I continued to release the capsule inferomedially to approximately the 4 o'clock position. The inferior osteophytes were now removed as well. This was done with a rongeur. I then proceeded with preparation of the proximal humerus. I removed all the goat's hines osteophytes. I then removed the subchondral plate from the superior aspect of the humeral head utilizing a large rongeur. I then used the starting reamer to gain access to the humeral canal. This was approximately 1 cm medial to the rotator cuff insertion and 1 cm posterior to the bicipital groove. I then prepared the humeral canal with hand reaming. I started with a 6 mm reamer and incrementally progressed until firm resistance was encountered at 11 mm. The reamer handle was then left in place. I then utilized a humeral resection guide set at 30 degrees of retrotorsion. The cutting block was then set approximately 1 to 2 mm above the insertion of the rotator cuff. I then proceed to osteotomize the humeral head with the oscillating saw. I removed the resection guide and then completed the osteotomy. I then proceeded with trial stem placement. Trial size 11 was then broached in the canal starting with a 6 mm broach and then incrementally increasing up to the 11 mm broach. The 11 mm trial stem was then left in place. Again, she had deficient rotator cuff. She also had a B2 glenoid. We proceeded with reverse total shoulder arthroplasty. At this point, I did release the biceps tendon. It was tenotomized at the level of the superior labrum. It was tenodesed into the proximal bicipital groove utilizing interrupted 0 Vicryl sutures. I then used a bone hook to pull the humerus out laterally. I inspected the joint for any loose bodies. The condition of the cuff was again inspected. She did have a chronic tear of the anterior supraspinatus. The Bhattman retractor was then placed on the posterior glenoid rim. The arm was placed approximately 80 degrees of abduction and in slight flexion on a Townsend stand. I then proceeded to remove the hypertrophic labrum to definitively identify the actual glenoid. I then utilized a mini-base plate guide. The pin was then placed proximally in the center of the glenoid with approximately 10 degrees of inferior tilt. I then proceeded to ream with the mini base plate reamer. Minimal reaming was done as possible as to preserve as much subchondral bone as possible. I then had the media sales representative open a mini base plate. This was then impacted into the actual glenoid. I then placed a 25 mm central screw. This screw had excellent purchase in bone and I was able to rotate the scapula through the screwdriver when the screw was fully seated. I then proceeded to place peripheral locking screws. These were 5 mm peripheral locking screws. The inferior screw was 25 mm. The anterior posterior and superior screws were 15 mm. I then had the media sales representative open a size 36 glenosphere. The offset was done to slightly inferiorize the actual glenosphere. The Cervantes taper was dried and the real glenosphere was impacted onto the mini base plate. I then proceeded to trial with the real glenosphere. A standard tray standard poly was then placed onto the stem. The shoulder was then reduced. It was mildly difficult reduction. The shoulder was stable throughout a full range of motion. There was no impingement noted. The conjoint tendon was of normal tension. The shoulder was then carefully redislocated. I made the decision to proceed with a standard tray and standard polyethylene. The media sales representative then opened a size 11 Biomet mini stem, a standard tray and a standard poly. The mini stem was then impacted into the canal in approximately 30 degrees of retrotorsion. The Cervantes taper was dried. The standard tray and poly were then assembled on the back table and then the tray was then impacted onto the real stem onto a dry Cervantes taper. The shoulder was then reduced. Again it was a mildly difficult reduction. It was stable through full range of motion. There was no impingement noted. The conjoint tendon was of normal tension. I then felt for the axillary nerve which was readily palpable. At this point, we proceeded with closure. The wound was thoroughly irrigated with sterile saline solution with antibiotic added via pulse lavage. We also used IrriSept antiseptic wash. Approximately 500 mg of vancomycin powder was then placed deep in the wound. The deltopectoral interval was then reapproximated with 0 Vicryl interrupted suture. The subcutaneous tissue was then again reirrigated with sterile saline solution with antibiotic added via pulse lavage. The remaining IrriSept was utilized. I then placed the remaining approximately 500 mg of vancomycin powder subcutaneous. The subcutaneous tissue was then closed with 2-0 Vicryl interrupted suture. The skin was closed with a running 3-0 Quill suture. Dermabond was applied to the incision. A sterile dressing was then applied and the left upper extremity was placed into a standard sling. All sponge and needle counts were deemed correct prior to closure. The patient tolerated the procedure without apparent complication. She was transferred to the recovery room in stable condition. MMODL / IJN: [id number] /
[2022-03-03] MEDS: HYDROmorphone 0.5 MG/0.5 ML SYRINGE IVP PRN ×2 (18:09→22:09)
[2022-03-04] MEDS: HYDROmorphone 0.5 MG/0.5 ML SYRINGE IVP PRN ×3 (02:04→11:01)
[2022-03-04 06:20] LABS: Basophils # (A) 0.1 k/uL (0-0.2); Basophils % (A) 1 %; Eosinophils % (A) 0 %; HCT 38.6 % (34.0-46.0); HGB 11.8 gm/dL (11.4-16.0); Hypochromasia Marked; Lymphocytes # (A) 1.9 k/uL (1.0-4.8); Lymphocytes % (A) 17 %; MCH 31.3 pg (25.0-35.0); MCHC 30.6 g/dL (31.0-37.0); MCV 102.3 fL (80.0-100.0); Macrocytosis Slight; Mean Platelet Volume 7.6; Monocytes # (A) 0.7 k/uL (0-1.0); Monocytes % (A) 6 %; Neutrophils # (A) 8.1 k/uL (1.3-7.7); Neutrophils % (A) 73 %; Platelet Count 248 k/uL (150-450); RBC 3.77 m/uL (3.80-5.40); RDW 13.5 % (11.5-15.5); WBC 11.1 k/uL (3.8-10.6)
[2022-03-04 08:05] VITALS: BP 92/60; PULSE 84; RESP 18; TEMP 97.6
--- NOTE | 2022-03-04 08:36 | P.CONS ---
History of Present Illness - Reason for Consult Consult date: 03/04/22 Medical management - Chief Complaint Left shoulder pain - History of Present Illness This 67-year-old white female essentially admitted for left shoulder repair. The patient is seen postop day #1 underlying history of restless leg syndrome stable. The patient does complain of significant postop pain today. No voiding difficulties. Nausea, vomiting or diarrhea. Voiding without difficulty. Review of Systems Constitutional: Denies chills, Denies fever Eyes: denies blurred vision, denies pain Ears, nose, mouth and throat: Denies headache, Denies sore throat Cardiovascular: Denies chest pain, Denies shortness of breath Respiratory: Denies cough Gastrointestinal: Denies abdominal pain, Denies diarrhea, Denies nausea, Denies vomiting Genitourinary: Denies dysuria, Denies hematuria Musculoskeletal: Reports as per HPI Past Medical History Past Medical History: Chest Pain / Angina, COPD, Fibromyalgia, GI Bleed, Osteoarthritis (OA) Additional Past Medical History / Comment(s): Emphysema. DEAF RT EAR. DDD IN BACK, RLS, RT URETERAL CALCULUS.COLON POLYPS-NEG,DIVERTICULOSIS, HEMORROIDS,ULCER YEARS AGO. Osteoporosis,had hospital admission in [place] Feb 2020 for chest pain-stated did not have a heart attack or any cardiac stents but did have a Cardiac Cath and was told by Drs the chest pain was r/t emphysema." History of Any Multi-Drug Resistant Organisms: None Reported Past Surgical History: Back Surgery, Heart Catheterization, Hysterectomy, Orthopedic Surgery Additional Past Surgical History / Comment(s): MARGA BSO 2002. PÉREZ SHOULDER SURG. PÉREZ KNEE SURG. carpal tunnel RELEASE, RT KNEE WAS SHATTERED HAD SX TO REPAIR, LT KNEE ARTHROSCOPY/MENISCUS SX, COLONOSCOPY 2021(next after 5yr). Past Anesthesia/Blood Transfusion Reactions: No Reported Reaction Additional Past Anesthesia/Blood Transfusion Reaction / Comm: no hx blood transfusion Past Psychological History: No Psychological Hx Reported Additional Psychological History / Comment(s): PT LIVES ALONE IN 2 STORY HOME THAT HAS 5 PORCH STEPS. NO PETS. PT IS INDEPENDANT. Smoking Status: Former smoker Past Alcohol Use History: Daily Additional Past Alcohol Use History / Comment(s): SMOKED FOR 25 YEARS-1 PPD, QUIT 2002,drinks 3-4 shots of vodka daily Past Drug Use History: Marijuana Additional Drug Use History / Comment(s): Edible marijuana monthly - Past Family History Mother Family Medical History: Cancer Additional Family Medical History / Comment(s): Colon cancer. Parkinson's disease. A maternal aunt had breast cancer. Father Family Medical History: Cancer Additional Family Medical History / Comment(s): Lungs cancer. A paternal aunt had breast cancer. Medications and Allergies Home Medications Medication Instructions Recorded Confirmed Type DULoxetine HCL [Cymbalta] 60 mg PO BID 01/08/16 02/28/22 History Hydrocodone/Acetaminophen [Hosmer 2 each PO BID PRN 02/28/22 02/28/22 History 5-325] Pramipexole Di-HCl [Pramipexole ER] 0.75 mg PO HS 02/28/22 03/03/22 History Docusate [Colace] 100 mg PO BID #60 capsule 03/03/22 Rx RX: Doxycycline Hyclate 100 mg PO BID #10 tab 03/03/22 Rx Allergies Allergy/AdvReac Type Severity Reaction Status Date / Time aspirin AdvReac Nausea Verified 03/03/22 06:01 ibuprofen [From Motrin] AdvReac Nausea Verified 03/03/22 06:01 morphine AdvReac Vomiting Verified 03/03/22 06:01 Physical Exam Vitals: Vital Signs Temp Pulse Pulse Resp BP BP Pulse Ox 03/04/22 08:00 84 18 03/04/22 07:22 97.6 F 84 18 92/60 95 03/04/22 02:28 97.7 F 88 22 94/60 95 03/03/22 19:52 98 F 86 20 96/61 93 L 03/03/22 15:24 77 16 03/03/22 12:08 89 110/73 95 03/03/22 11:53 77 109/72 95 03/03/22 11:38 83 124/77 93 L 03/03/22 11:23 96 113/73 87 L 03/03/22 11:08 90 111/75 90 L 03/03/22 10:39 99 118/74 94 L 03/03/22 10:23 93 127/83 96 03/03/22 10:02 77 16 132/76 99 03/03/22 09:45 81 16 140/80 99 03/03/22 09:33 80 16 141/85 99 03/03/22 09:19 86 16 132/72 99 03/03/22 09:04 98 F 96 14 156/86 93 L FiO2 03/04/22 08:00 03/04/22 07:22 03/04/22 02:28 03/03/22 19:52 03/03/22 15:24 03/03/22 12:08 03/03/22 11:53 03/03/22 11:38 03/03/22 11:23 03/03/22 11:08 03/03/22 10:39 03/03/22 10:23 03/03/22 10:02 03/03/22 09:45 6 03/03/22 09:33 6 03/03/22 09:19 6 03/03/22 09:04 Intake and Output 03/03/22 03/04/22 03/04/22 22:59 06:59 14:59 Other: Voiding Method Toilet Toilet # Voids 1 - Constitutional General appearance: no acute distress - EENT Eyes: EOMI - Neck Neck: no lymphadenopathy - Respiratory Respiratory: bilateral: diminished - Cardiovascular Rhythm: irregularly irregular Heart sounds: normal: S1, S2 Abnormal Heart Sounds: no S3 Gallop - Gastrointestinal General gastrointestinal: soft, no tenderness - Integumentary Integumentary: no cellulitis - Psychiatric Psychiatric: A&O x's 3 Results CBC & Chem 7: 03/04/22 05:47 Labs: Abnormal Lab Results - Last 24 Hours (Table) 03/04/22 Range/Units 05:47 WBC 11.1 H (3.8-10.6) k/uL RBC 3.77 L (3.80-5.40) m/uL MCV 102.3 H (80.0-100.0) fL MCHC 30.6 L (31.0-37.0) g/dL Neutrophils # 8.1 H (1.3-7.7) k/uL Assessment and Plan (1) Shoulder arthritis Current Visit: Yes Status: Acute Code(s): M19.019 - PRIMARY OSTEOARTHRITIS, UNSPECIFIED SHOULDER SNOMED Code(s): 714027931 (2) Fibromyalgia Current Visit: No Status: Chronic Code(s): M79.7 - FIBROMYALGIA SNOMED Code(s): 654132635 Plan: The patient is postop day #1 for shoulder repair. Reconcile medications. Pain control per surgery. Anticipate discharge today. Appreciate consultation
[2022-03-04] MEDS ORDERED: DULoxetine HCL 60 MG CAPSULE.DR PO SCH (09:00)
[2022-03-04] MEDS: LACTATED RINGERS 1,000 ML IV SCH ×2 (10:12)
[2022-03-04] MEDS ORDERED: oxyCODONE ER 10 MG TAB.ER.12H PO SCH (12:45)
[2022-03-04] MEDS ORDERED: oxyCODONE-APAP 7.5-325MG 1 EACH TAB PO PRN ×2 (12:48)
--- NOTE | 2022-03-04 12:58 | P.DS ---
Providers Date of admission: 03/04/22 08:31 Expected date of discharge: 03/04/22 Attending physician: Bandar Jeronimo Consults: 03/03/22 09:29 Consult Physician Routine Consulting Provider: Chente Connell Consult Reason/Comments: post op medical management Do you want consulting provider notified?: Yes Primary care physician: Chente Connell - Discharge Diagnosis(es) (1) Shoulder arthritis Patient was admitted to the OR on 03/03/22 to undergo a left reverse total shoulder arthroplasty. She had failed conservative measures as an outpatient and desired to proceed with elective surgery after given informed consent. She underwent the above procedure which she tolerated well without complication. Postoperative hospital course has remained without complication. On day of dis charge she is afebrile, vital signs stable, labs within acceptable ranges, tolerating by mouth meds and diet, voiding without difficulty, positive flatus, denies abdominal pain or calf pain, pain is controlled on oral pain medication and has no new complaints. Wound is benign, neurovascular status is intact, calf is soft and nontender, abdomen soft and nontender. Review of systems is negative for numbness, tingling, fever, chills, chest pain, shortness of breath, nausea, vomiting, dizziness, headaches, slurred speech or other. Current Visit: Yes Status: Acute Priority: Medium Procedures: Left reverse TSA Patient Condition at Discharge: Good Plan - Discharge Summary Discharge Rx Participant: No New Discharge Prescriptions: New Docusate [Colace] 100 mg PO BID #60 capsule Doxycycline Hyclate 100 mg PO BID #10 tab Ondansetron [Zofran] 4 mg PO Q8HR PRN #10 tab PRN Reason: Nausea HYDROcodone/APAP 7.5-325MG [Thida 7.5-325] 1 - 2 each PO Q6HR PRN #42 tab PRN Reason: Pain oxyCODONE ER [OxyCONTIN] 10 mg PO Q12HR 5 Days #10 tab No Action DULoxetine HCL [Cymbalta] 60 mg PO BID Pramipexole Di-HCl [Pramipexole ER] 0.75 mg PO HS Hydrocodone/Acetaminophen [Thida 5-325] 2 each PO BID PRN PRN Reason: Pain Discharge Medication List DULoxetine HCL [Cymbalta] 60 mg PO BID 01/08/16 [History] Hydrocodone/Acetaminophen [Thida 5-325] 2 each PO BID PRN 02/28/22 [History] Pramipexole Di-HCl [Pramipexole ER] 0.75 mg PO HS 02/28/22 [History] Docusate [Colace] 100 mg PO BID #60 capsule 03/03/22 [Rx] Doxycycline Hyclate 100 mg PO BID #10 tab 03/03/22 [Rx] HYDROcodone/APAP 7.5-325MG [Thida 7.5-325] 1 - 2 each PO Q6HR PRN #42 tab 03/04/22 [Rx] Ondansetron [Zofran] 4 mg PO Q8HR PRN #10 tab 03/04/22 [Rx] oxyCODONE ER [OxyCONTIN] 10 mg PO Q12HR 5 Days #10 tab 03/04/22 [Rx] Follow up Appointment(s)/Referral(s): Bandar Jeronimo MD [STAFF PHYSICIAN] - 10 Days Activity/Diet/Wound Care/Special Instructions: maintain sling keep wound clean and dry nonweight bearing left upper extremity take meds as directed f/u in office Discharge Disposition: HOME SELF-CARE
[2022-03-04] MEDS ORDERED: PRAMIPEXOLE 0.25 MG TAB PO SCH (21:00)
== END 2022-03-04 16:19 | disposition home or self-care (01) ==
LOC: OR 05:40 → 4SSUR 10:03 → OR 03-04 08:31
PROVIDERS: ADMIT Orthopaedic Surgery Sports Medicine; ATTEND Orthopaedic Surgery Sports Medicine
DX: M19.012 Primary osteoarthritis, left shoulder (principal); M25.712 Osteophyte, left shoulder; J98.4 Other disorders of lung; R63.5 Abnormal weight gain; H53.9 Unspecified visual disturbance; Z87.891 Personal history of nicotine dependence; G25.81 Restless legs syndrome; M79.7 Fibromyalgia; J43.9 Emphysema, unspecified; H91.91 Unspecified hearing loss, right ear; Z87.442 Personal history of urinary calculi; Z87.19 Personal history of other diseases of the digestive system; M81.0 Age-related osteoporosis without current pathological fracture; Z97.3 Presence of spectacles and contact lenses; Z90.710 Acquired absence of both cervix and uterus; Z90.49 Acquired absence of other specified parts of digestive tract; Z98.890 Other specified postprocedural states; Z80.3 Family history of malignant neoplasm of breast; Z80.1 Family history of malignant neoplasm of trachea, bronchus and lung; Z80.0 Family history of malignant neoplasm of digestive organs; Z82.69 Family history of other diseases of the musculoskeletal system and connective tissue; Z79.899 Other long term (current) drug therapy; Z88.6 Allergy status to analgesic agent; Z88.5 Allergy status to narcotic agent
CPT/HCPCS: 64415; 76942; 85025; 88300; 73020; 23472; G0378; C1776; J2250; J3370; J0330; J1100; J2710; J0690 ×2; J2405; J3010; J2795; J2370; J2704; J1170 ×2; J2001

== ENCOUNTER 2022-07-03 09:57 | Emergency (ER) | payer MEDICARE ==
[2022-07-03 10:24] VITALS: RESP 18
[2022-07-03] MEDS ORDERED: SODIUM CHLORIDE 0.9% 1,000 ML IV STA (11:29)
--- NOTE | 2022-07-03 11:45 | ED ---
GI Bleed HPI - General Chief complaint: GI Bleed Stated complaint: poss GI bleed Time Seen by Provider: 07/03/22 11:14 Source: patient Mode of arrival: ambulatory Limitations: no limitations - History of Present Illness Initial comments: Patient is a 67-year-old female presenting with chief complaint of rectal bleeding. Patient states that today she has noticed bleeding from the rectum even without bowel movements. She states that for about a month she has noticed mucus in her stool. She admits to diffuse abdominal cramping. No blood thinners. Surgical history includes complete hysterectomy. Patient has had previous colonoscopies, states that she has had polyps in the past which have been removed. No chest pain or difficulty breathing. No diarrhea or constipation. No abdominal trauma. No fevers or chills. No palpitations or weakness. - Related Data Home Medications Medication Instructions Recorded Confirmed DULoxetine HCL [Cymbalta] 60 mg PO BID 01/08/16 02/28/22 Hydrocodone/Acetaminophen [Castle 2 each PO BID PRN 02/28/22 02/28/22 5-325] Pramipexole Di-HCl [Pramipexole ER] 0.75 mg PO HS 02/28/22 03/03/22 Previous Rx's Medication Instructions Recorded Docusate [Colace] 100 mg PO BID #60 capsule 03/03/22 Doxycycline Hyclate 100 mg PO BID #10 tab 03/03/22 HYDROcodone/APAP 7.5-325MG [Castle 1 - 2 each PO Q6HR PRN #42 tab 03/04/22 7.5-325] Ondansetron [Zofran] 4 mg PO Q8HR PRN #10 tab 03/04/22 oxyCODONE ER [OxyCONTIN] 10 mg PO Q12HR 5 Days #10 tab 03/04/22 Amoxic-Pot Clav 875-125Mg 1 tab PO Q12HR 10 Days #20 tab 07/03/22 [Augmentin 875-125] Amoxic-Pot Clav 875-125Mg 1 tab PO Q12HR 10 Days #20 tab 07/03/22 [Augmentin 875-125] Ondansetron Odt [Zofran Odt] 4 mg PO Q8HR PRN #20 tab 07/03/22 Ondansetron Odt [Zofran Odt] 4 mg PO Q8HR PRN #20 tab 07/03/22 Allergies Allergy/AdvReac Type Severity Reaction Status Date / Time aspirin AdvReac Nausea Verified 07/03/22 10:24 ibuprofen [From Motrin] AdvReac Nausea Verified 07/03/22 10:24 morphine AdvReac Vomiting Verified 07/03/22 10:24 Review of Systems ROS Statement: Those systems with pertinent positive or pertinent negative responses have been documented in the HPI. ROS Other: All systems not noted in ROS Statement are negative. Past Medical History Past Medical History: Chest Pain / Angina, COPD, Fibromyalgia, GI Bleed, Osteoarthritis (OA) Additional Past Medical History / Comment(s): Emphysema. DEAF RT EAR. DDD IN BACK, RLS, RT URETERAL CALCULUS.COLON POLYPS-NEG,DIVERTICULOSIS, HEM ORROIDS,ULCER YEARS AGO. Osteoporosis,had hospital admission in [place] Feb 2020 for chest pain-stated did not have a heart attack or any cardiac stents but did have a Cardiac Cath and was told by Drs the chest pain was r/t emphysema." History of Any Multi-Drug Resistant Organisms: None Reported Past Surgical History: Back Surgery, Heart Catheterization, Hysterectomy, Orthopedic Surgery Additional Past Surgical History / Comment(s): MARGA BSO 2002. PÉREZ SHOULDER SURG. PÉREZ KNEE SURG. carpal tunnel RELEASE, RT KNEE WAS SHATTERED HAD SX TO REPAIR, LT KNEE ARTHROSCOPY/MENISCUS SX, COLONOSCOPY 2021(next after 5yr). Past Anesthesia/Blood Transfusion Reactions: No Reported Reaction Additional Past Anesthesia/Blood Transfusion Reaction / Comment(s): no hx blood transfusion Past Psychological History: No Psychological Hx Reported Smoking Status: Former smoker Past Alcohol Use History: Daily Past Drug Use History: Marijuana - Past Family History Mother Family Medical History: Cancer Additional Family Medical History / Comment(s): Colon cancer. Parkinson's disease. A maternal aunt had breast cancer. Father Family Medical History: Cancer Additional Family Medical History / Comment(s): Lungs cancer. A paternal aunt had breast cancer. General Exam Limitations: no limitations General appearance: alert, in no apparent distress Head exam: Present: atraumatic, normocephalic, normal inspection Eye exam: Present: normal appearance, EOMI. Absent: scleral icterus, periorbital swelling Neck exam: Present: normal inspection, full ROM Respiratory exam: Present: normal lung sounds bilaterally. Absent: respiratory distress, wheezes, rales, rhonchi, stridor Cardiovascular Exam: Present: regular rate, normal rhythm, normal heart sounds. Absent: systolic murmur, diastolic murmur, rubs, gallop, clicks GI/Abdominal exam: Present: soft, tenderness. Absent: distended, guarding, rebound, rigid Rectal exam: Present: normal inspection, normal rectal tone, heme (+) stool (Small amount of blood and mucus seen on inspection) Neurological exam: Present: alert, oriented X3, CN II-XII intact Psychiatric exam: Present: normal affect, normal mood Skin exam: Present: warm, dry, intact, normal color. Absent: rash Course Vital Signs 07/03/22 07/03/22 07/03/22 10:20 12:00 12:06 Temperature 98.0 F Pulse Rate 99 94 Respiratory 18 18 Rate Blood Pressure 141/93 147/90 149/87 O2 Sat by Pulse 99 99 Oximetry 07/03/22 07/03/22 07/03/22 12:30 13:30 14:00 Temperature Pulse Rate Respiratory Rate Blood Pressure 149/87 150/91 153/91 O2 Sat by Pulse 95 97 Oximetry 07/03/22 07/03/22 14:30 15:00 Temperature 98.2 F Pulse Rate 60 Respiratory Rate Blood Pressure 163/103 162/98 O2 Sat by Pulse 94 L 95 Oximetry Medical Decision Making - Medical Decision Making Was pt. sent in by a medical professional or institution (, PA, DIRECTOR OF PURCHASING, urgent care, hospital, or shelter...) When possible be specific @ -No Did you speak to anyone other than the patient for history (EMS, parent, family, police, friend...)? What history was obtained from this source @ -No Did you review nursing and triage notes (agree or disagree)? Why? @ -I reviewed and agree with nursing and triage notes Were old charts reviewed (outside hosp., previous admission, EMS record, old EKG, old radiological studies, urgent care reports/EKG's, shelter records)? Report findings @ -No old charts were reviewed Differential Diagnosis (chest pain, altered mental status, abdominal pain women, abdominal pain men, vaginal bleeding, weakness, fever, dyspnea, syncope, headache, dizziness, GI bleed, back pain, seizure, CVA, palpatations, mental health, musculoskeletal)? @ -[facility] Differential GI Bleed: Esophageal varices, aortoenteric fistula, Lacie-Fine, gastritis, peptic ulcer disease, diverticulosis, inflammatory bowel disease, hemorrhoids, fissure, colitis, malignancy, Meckels diverticulum this is not meant to be an all- inclusive list. EKG interpreted by me (3pts min.). @ -As above X-rays interpreted by me (1pt min.). @ -None done CT interpreted by me (1pt min.). @ -CT shows colitis of the splenic flexure descending colon and proximal sigmoid colon with thickened wall and adjacent inflammatory changes and some minimal free fluid in the paracolic gutter U/S interpreted by me (1pt. min.). @ -None done What testing was considered but not performed or refused? (CT, X-rays, U/S, labs)? Why? @ -None What meds were considered but not given or refused? Why? @ -None Did you discuss the management of the patient with other professionals (professionals i.e. , PA, DIRECTOR OF PURCHASING, lab, RT, psych nurse, social work case manager, health education aide, teacher, residential care officer, case advocate)? Give summary @ -No Was smoking cessation discussed for >3mins.? @ -No Was critical care preformed (if so, how long)? @ -No Were there social determinants of health that impacted care today? How? (Homelessness, low income, unemployed, alcoholism, drug addiction, transportation, low edu. Level, literacy, decrease access to med. care, shelter, rehab)? @ -No Was there de-escalation of care discussed even if they declined (Discuss DNR or withdrawal of care, Hospice)? DNR status @ -No What co-morbidities impacted this encounter? (DM, HTN, Smoking, COPD, CAD, Cancer, CVA, ARF, Chemo, Hep., AIDS, mental health diagnosis, sleep apnea, morbid obesity)? @ -None Was patient admitted / discharged? Hospital course, mention meds given and route, prescriptions, significant lab abnormalities, going to OR and other pertinent info. @ -Patient is a 67-year-old female presenting with chief complaint of rectal bleeding. States that she has had diarrhea and diffuse abdominal pain for several weeks. On physical examination there is some abdominal tenderness noted. Normal rectal exam, small string of mucus and blood noted adjacent to the rectum, occult stool is negative. Hemoglobin is stable at 12.9, patient is not on any blood thinners. CT is positive for colitis. I discussed these findings with the patient. She was given the option of admission or trialing outpatient antibiotics. She opted to try outpatient antibiotics and follow-up with her PCP at her scheduled appointment tomorrow. I believe this is reasonable. She is sent a prescription for Augmentin and Zofran. Follow-up with PCP. Report back to ER with any new or worsening symptoms. Discussed return parameters and answered all questions. Patient conveyed verbal understanding and agreed to the plan. I discussed this case in detail with my attending Dr. Weber Undiagnosed new problem with uncertain prognosis? @ -No Drug Therapy requiring intensive monitoring for toxicity (Heparin, Nitro, Insulin, Cardizem)? @ -No Were any procedures done? @ -No Diagnosis/symptom? @ -Colitis Acute, or Chronic, or Acute on Chronic? @ -Acute Uncomplicated (without systemic symptoms) or Complicated (systemic symptoms)? @ -Uncomplicated Side effects of treatment? @ -No Exacerbation, Progression, or Severe Exacerbation? @ -No Poses a threat to life or bodily function? How? (Chest pain, USA, SD, pneumonia, PE, COPD, DKA, ARF, appy, cholecystitis, CVA, Diverticulitis, Homicidal, Suicidal, threat to staff... and all critical care pts) @ -No - Lab Data Result diagrams: 07/03/22 11:59 07/03/22 11:59 Lab Results 07/03/22 07/03/22 07/03/22 Range/Units 11:59 11:59 11:59 WBC 11.2 H (3.8-10.6) k/uL RBC 4.29 (3.80-5.40) m/uL Hgb 12.9 (11.4-16.0) gm/dL Hct 39.6 (34.0-46.0) % MCV 92.2 (80.0-100.0) fL MCH 30.1 (25.0-35.0) pg MCHC 32.6 (31.0-37.0) g/dL RDW 15.0 (11.5-15.5) % Plt Count 337 (150-450) k/uL MPV 8.0 Neutrophils % 74 % Lymphocytes % 19 % Monocytes % 4 % Eosinophils % 1 % Basophils % 0 % Neutrophils # 8.2 H (1.3-7.7) k/uL Lymphocytes # 2.2 (1.0-4.8) k/uL Monocytes # 0.4 (0-1.0) k/uL Eosinophils # 0.2 (0-0.7) k/uL Basophils # 0.0 (0-0.2) k/uL PT 10.1 (9.0-12.0) sec INR 0.9 (<1.2) APTT 22.9 (22.0-30.0) sec Sodium (137-145) mmol/L Potassium (3.5-5.1) mmol/L Chloride (98-107) mmol/L Carbon Dioxide (22-30) mmol/L Anion Gap mmol/L BUN (7-17) mg/dL Creatinine (0.52-1.04) mg/dL Est GFR (CKD-EPI)AfAm (>60 ml/min/1.73 sqM) Est GFR (CKD-EPI)NonAf (>60 ml/min/1.73 sqM) Glucose (74-99) mg/dL Plasma Lactic Acid Fabio (0.7-2.0) mmol/L Calcium (8.4-10.2) mg/dL Magnesium (1.6-2.3) mg/dL Total Bilirubin (0.2-1.3) mg/dL AST (14-36) U/L ALT (4-34) U/L Alkaline Phosphatase (38-126) U/L Total Protein (6.3-8.2) g/dL Albumin (3.5-5.0) g/dL Lipase (23-300) U/L Stool Occult Blood Negative (Negative) 07/03/22 07/03/22 Range/Units 11:59 11:59 WBC (3.8-10.6) k/uL RBC (3.80-5.40) m/uL Hgb (11.4-16.0) gm/dL Hct (34.0-46.0) % MCV (80.0-100.0) fL MCH (25.0-35.0) pg MCHC (31.0-37.0) g/dL RDW (11.5-15.5) % Plt Count (150-450) k/uL MPV Neutrophils % % Lymphocytes % % Monocytes % % Eosinophils % % Basophils % % Neutrophils # (1.3-7.7) k/uL Lymphocytes # (1.0-4.8) k/uL Monocytes # (0-1.0) k/uL Eosinophils # (0-0.7) k/uL Basophils # (0-0.2) k/uL PT (9.0-12.0) sec INR (<1.2) APTT (22.0-30.0) sec Sodium 137 (137-145) mmol/L Potassium 4.0 (3.5-5.1) mmol/L Chloride 103 (98-107) mmol/L Carbon Dioxide 25 (22-30) mmol/L Anion Gap 9 mmol/L BUN 20 H (7-17) mg/dL Creatinine 0.82 (0.52-1.04) mg/dL Est GFR (CKD-EPI)AfAm 86 (>60 ml/min/1.73 sqM) Est GFR (CKD-EPI)NonAf 74 (>60 ml/min/1.73 sqM) Glucose 109 H (74-99) mg/dL Plasma Lactic Acid Fabio 1.0 (0.7-2.0) mmol/L Calcium 9.5 (8.4-10.2) mg/dL Magnesium 1.9 (1.6-2.3) mg/dL Total Bilirubin 0.8 (0.2-1.3) mg/dL AST 35 (14-36) U/L ALT 29 (4-34) U/L Alkaline Phosphatase 106 (38-126) U/L Total Protein 7.4 (6.3-8.2) g/dL Albumin 4.5 (3.5-5.0) g/dL Lipase 35 (23-300) U/L Stool Occult Blood (Negative) Disposition Clinical Impression: Colitis Disposition: HOME SELF-CARE Condition: Good Instructions (If sedation given, give patient instructions): Colitis (ED) Additional Instructions: Follow-up with PCP at scheduled appointment tomorrow. Report back to ER with any new or worsening symptoms. Take medication as prescribed. Follow bland soft diet for the next few days until symptoms improve Prescriptions: Amoxic-Pot Clav 875-125Mg [Augmentin 875-125] 1 tab PO Q12HR 10 Days #20 tab Amoxic-Pot Clav 875-125Mg [Augmentin 875-125] 1 tab PO Q12HR 10 Days #20 tab Ondansetron Odt [Zofran Odt] 4 mg PO Q8HR PRN #20 tab PRN Reason: Nausea Ondansetron Odt [Zofran Odt] 4 mg PO Q8HR PRN #20 tab PRN Reason: Nausea Is patient prescribed a controlled substance at d/c from ED?: No Referrals: Chente Connell MD [Primary Care Provider] - 1-2 days Time of Disposition: 14:06
[2022-07-03 12:17] LABS: Albumin 4.5 g/dL (3.5-5.0); Calcium 9.5 mg/dL (8.4-10.2); Magnesium 1.9 mg/dL (1.6-2.3); Total Bilirubin 0.8 mg/dL (0.2-1.3); Total Protein 7.4 g/dL (6.3-8.2)
[2022-07-03 12:52] LABS: INR 0.9 (<1.2); Partial Thromboplastin Time 22.9 sec (22.0-30.0); Prothrombin Time 10.1 sec (9.0-12.0)
[2022-07-03 12:55] LABS: Basophils % (A) 0 %; Eosinophils # (A) 0.2 k/uL (0-0.7); Eosinophils % (A) 1 %; HCT 39.6 % (34.0-46.0); HGB 12.9 gm/dL (11.4-16.0); Lymphocytes # (A) 2.2 k/uL (1.0-4.8); Lymphocytes % (A) 19 %; MCH 30.1 pg (25.0-35.0); MCHC 32.6 g/dL (31.0-37.0); MCV 92.2 fL (80.0-100.0); Monocytes # (A) 0.4 k/uL (0-1.0); Monocytes % (A) 4 %; Neutrophils # (A) 8.2 k/uL (1.3-7.7); Neutrophils % (A) 74 %; Platelet Count 337 k/uL (150-450); RBC 4.29 m/uL (3.80-5.40); WBC 11.2 k/uL (3.8-10.6)
[2022-07-03] MEDS ORDERED: KETOROLAC 15 MG/ML 1 ML VIAL IVP STA (13:28)
--- NOTE | 2022-07-03 13:41 | CT ---
EXAMINATION TYPE: CT abdomen pelvis w con DATE OF EXAM: 07/03/2022 COMPARISON: 12/12/2016 INDICATION: Rectal bleeding DLP: 976.5 mGycm, Automated exposure control for dose reduction was used. CONTRAST: 100 ml mL of Isovue 300. Study performed without Oral Contrast TECHNIQUE: Axial images were obtained from above the diaphragm to the pubic rami in the axial plane a t 5 mm thick sections. Reconstructed images are reviewed on the computer in the coronal plane. FINDINGS: Limited CT sections are obtained the lung bases. The lung bases are clear. CT ABDOMEN: Liver: Normal Spleen: Normal Pancreas: Normal Adrenal glands: The adrenal glands are normal. Gallbladder: Surgically absent Kidneys: No masses are evident. No hydronephrosis is present. No cysts are present. Delayed images were obtained through the kidneys, which remain unremarkable. Aorta: Vascular calcification is within the aorta. Inferior vena cava: Normal. CT PELVIS: Splenic flexure and descending colon extending into the proximal sigmoid colon has thickened bhatia wi th some minimal adjacent inflammatory changes. Correlate for colitis. No obstruction is evident. Appendix: Normal as visualized. Urinary bladder: Normal. Genitourinary structures: Uterus is not identified. Adnexa appear normal. Osseous structures: No suspicious lytic or sclerotic lesions. IMPRESSIONS: 1. Colitis of the splenic flexure descending colon and proximal sigmoid colon with thickened wall an d adjacent inflammatory changes and some minimal free fluid in the paracolic gutter.
[2022-07-03] MEDS ORDERED: MORPHINE SULFATE 2 MG/ML SYRINGE IVP STA (14:02)
[2022-07-03] MEDS ORDERED: ONDANSETRON 4 MG/2 ML VIAL IVP STA (14:02)
[2022-07-03] MEDS ORDERED: AMOXIC-POT CLAV 875-125MG 1 EACH TAB PO STA (14:03)
[2022-07-03 15:06] VITALS: BP 162/98; PULSE 60; TEMP 98.2
== END 2022-07-03 15:19 | disposition home or self-care (01) ==
LOC: EC 09:57
DX: K52.9 Noninfective gastroenteritis and colitis, unspecified (principal); M19.90 Unspecified osteoarthritis, unspecified site; Z79.891 Long term (current) use of opiate analgesic; Z88.5 Allergy status to narcotic agent; Z88.6 Allergy status to analgesic agent; Z88.8 Allergy status to other drugs, medicaments and biological substances; Z87.891 Personal history of nicotine dependence
CPT/HCPCS: 36415; 80053; 83605; 83690; 83735; 85025; 85610; 85730; 82272; 74177; 99285; 96374; 96375 ×2; J2405; J2270; J1885; Q9967

== ENCOUNTER → 2022-11-23 | Outpatient (CLI) | payer MEDICARE ==
--- NOTE | 2022-11-23 10:49 | MM ---
Reason for Exam: Additional evaluation requested from abnormal screening. Last screening mammogram was performed less than 1 month ago. Patient History: Menarche at age 13. First Full-Term at age 26. Left ovary removed at age 48. Right ovary removed at age 48. Hysterectomy at age 48. Postmenopausal. Estrogen for 11 years, 1 month, from age 48 until age 59. Paternal aunt had breast cancer, age 40. Maternal aunt had breast cancer, age 40. Risk Values: Suellen 5 year model risk: 1.9%. NCI Lifetime model risk: 6.4%. Prior Study Comparison: 06/30/2020 Bilateral Screening Mammogram, [facility]. 09/22/2021 Bilateral MG 3D screening mammo w/cad, [facility]. 11/15/2022 Bilateral MG 3D screening mammo w/cad, [facility]. Tissue Density: Left: The breast tissue is heterogeneously dense. This may lower the sensitivity of mammography. Findings: Analyzed By CAD. Persistent ovoid 5 mm high density nodule within the upper outer left breast 9 cm from nipple. May represent an intramammary lymph node. No suspicious group of calcifications within the left breast. Benign-appearing calcifications within the left breast. Overall Assessment: Incomplete: need additional imaging evaluation, BI-RAD 0 Management: Diagnostic Breast Ultrasound of the left breast. A clinical breast exam by your physician is recommended on an annual basis and results should be correlated with mammographic findings. This exam should not preclude additional follow-up of suspicious palpable abnormalities. Results were given to the patient verbally at the time of exam. Note on Suellen scores and lifetime risk: 1. A Suellen score greater than 3% is considered moderate risk. If this is the case, consider specialist referral to assess eligibility for a risk reducing agent. If overall lifetime risk for the development of breast cancer is 20% or higher, the patient may qualify for future screening with alternating mammogram and breast MRI. Electronically signed and approved by: Rick Aguilera D.O.
--- NOTE | 2022-11-23 11:35 | USB ---
Reason for Exam: Additional evaluation requested from abnormal screening. Patient History: Menarche at age 13. First Full-Term at age 26. Left ovary removed at age 48. Right ovary removed at age 48. Hysterectomy at age 48. Postmenopausal. Estrogen for 11 years, 1 month, from age 48 until age 59. Paternal aunt had breast cancer, age 40. Maternal aunt had breast cancer, age 40. Risk Values: Suellen 5 year model risk: 1.9%. NCI Lifetime model risk: 6.4%. Technique: Method: Targeted. Prior Study Comparison: 06/30/2020 Bilateral Screening Mammogram, [facility]. 09/22/2021 Bilateral MG 3D screening mammo w/cad, [facility]. 11/15/2022 Bilateral MG 3D screening mammo w/cad, [facility]. Findings: The upper outer quadrant of the left breast, the axilla of the left breast and the retroareolar of the left breast were scanned. Targeted ultrasound of the left breast from 12-3 o'clock with additional evaluation of the nipple and axillary tail was performed. There is a benign lymph node in the left breast at 3:00 9 cm from the nipple measuring 0.5 x 0.5 x 0.3 cm with central fatty hilum. The cortex is not thickened measuring 0.1 cm. This is consistent with a benign intramammary lymph node and corresponds to mammographic finding. Overall Assessment: Benign, BI-RAD 2 Management: Screening Mammogram of both breasts in 1 year. A clinical breast exam by your physician is recommended on an annual basis and results should be correlated with mammographic findings. This exam should not preclude additional follow-up of suspicious palpable abnormalities. Results were given to the patient verbally at the time of exam. Electronically signed and approved by: Rick Aguilera D.O.
== END | disposition home or self-care (01) ==
LOC: RADMAMWWP 10:22
PROVIDERS: ATTEND Obstetrics & Gynecology
DX: R92.8 Other abnormal and inconclusive findings on diagnostic imaging of breast (principal); Z78.0 Asymptomatic menopausal state; Z80.3 Family history of malignant neoplasm of breast
CPT/HCPCS: 77065; 76642; G0279; 77061

== ENCOUNTER → 2022-12-14 | Outpatient (CLI) | payer MEDICARE ==
[~2022-12-14] MED LIST changes: -ACETAMINOPHEN TAB 500 MG TAB PO PRN; -GABAPENTIN 300 MG CAP PO PRN; -MELOXICAM 7.5 MG TAB PO PRN; -ONDANSETRON 4 MG/2 ML VIAL IVP PRN; +REGADENOSON 0.4 MG/5 ML SYRINGE IV PRN; -TRANEXAMIC ACID IN NACL,ISO-OS 1,000 MG in SALINE 1 100ML.BAG IVPB PRN
--- NOTE | 2022-12-14 10:59 | CA ---
Lexiscan Nuclear Stress Test Report Name: Yasmine Linares Exam Date: 12/14/2022 10:19 Exam Location: [place] Stress Ht (in): 66 Wt (lb): 165 BSA: 1.84 Ordering Phys: Chente Connell MD Referring Phys: DELORES, Technologist: Farrukh Martinez Age: 67 Gender: F : 1955 Procedure CPT: Indications: I20.9 Angina ICD-10 Codes: Patient History: CHEST PAIN, DIFFICULTY IN BREATHING, ANGINA, HTN, FORMER SMOKER, EMPHYSEMA Medications: HYDROCODONE, DULOXETINE, AMLODIPINE, PRAMIPEXOLE Meds past 24 hrs: Pretest Chest Pain: STRESS TEST Lexiscan Protocol Exercise Duration (min:sec): 01:[address] Depressions (mm): Angina Score: Baugh Score: Resting HR (bpm): 66 Peak HR (bpm): 78 Resting BP (mmHg): 121 / 70 Peak BP (mmHg): 121 / 70 MPHR: 153 Target HR: 130 % MPHR: 51 METS: 1.0 Total Dose: Peak Dose: Atropine: Double Product: 9438 BP Response: Stress Termination: INFUSION COMPLETE Stress Symptoms: NO SYMPTOMS Stress Summary: ECG ANALYSIS Resting ECG: Stress ECG: CONCLUSIONS RESTING EKG: [Normal sinus rhythm, normal EKG] , Heart rate 64 BPM Patient recieved IV infusion of Lexiscan 0.4mg and at peak infusion STRESS EKG showed: [No significant ST-T wave changes diagnostic for ischemia by ST segment analysis] ARRYTHMIAS: [No ectopic rhythms or sustained arrythmias] CONCLUSION: 1. Normal hemodynamic and heart response to Lexiscan infusion. 2. Normal resting EKG 3. Non-ischemic EKG response to lexiscan infusion 4. Nuclear perfusion imaging is reported separately by the radiology team. Please refer to that report for complete interpretation of this study. Dr Robert Gaitan (Electronically Signed) Final Date: 14 December 2022 10:58
--- NOTE | 2022-12-14 23:31 | NM ---
EXAMINATION TYPE: NM stress lexiscan cardiolite DATE OF EXAM: 12/14/2022 COMPARISON: NONE HISTORY: Angina TECHNIQUE: After the intravenous administration of 9.85 mCi Tc 99m Sestamibi - Cardiolite resting SP ECT images acquired 60 minutes post injection. At peak stress 25.1 mCi Tc 99m Sestamibi - Stress images obtained 30 minutes post injection The patient was stressed with 0.4mg Lexiscan. FINDINGS: No fixed defects are evident No reversible stress defects on Spect images Wall motion is normal Ejection fraction is calculated to be 69 %. IMPRESSION: 1. No stress-induced ischemic changes.
== END | disposition home or self-care (01) ==
LOC: RADNMMAIN 08:08
PROVIDERS: ATTEND Family Medicine
DX: I20.9 Angina pectoris, unspecified (principal); J43.9 Emphysema, unspecified
CPT/HCPCS: 93017; 78452; A9500; J2785

== ENCOUNTER 2023-11-14 11:43 | Day surgery (SDC) | payer MEDICARE ==
[2023-11-08 17:49] VITALS: BMI 25.8
[2023-11-14 12:05] VITALS: TEMP 97
[2023-11-14] MEDS: IV FLUID CONTINUATION 1,000 ML IV ONE (12:08)
[2023-11-14] MEDS: LACTATED RINGERS 1,000 ML IV SCH (12:20)
[2023-11-14] MEDS ORDERED: PROPOFOL 10 MG/ML 20 ML VIAL IV ONE (12:39)
--- NOTE | 2023-11-14 12:40 | P.GSHP ---
History of Present Illness H&P Date: 11/14/23 Chief Complaint: Change in bowel habits, colitis 68-year-old female here for colonoscopy. Patient has had some change in her stools. Her stools are more slimy she states. May be a bit more frequent. Patient had a CAT scan last year showing left-sided colitis. Family history of colon cancer in her mother. She is unsure when her last colonoscopy was. Past Medical History Past Medical History: Chest Pain / Angina, COPD, Fibromyalgia, GI Bleed, Hypertension, Osteoarthritis (OA) Additional Past Medical History / Comment(s): Emphysema. DEAF RT EAR. DDD IN BACK, RLS, RT URETERAL CALCULUS. COLON POLYPS-NEG, DIVERTICULOSIS, HEMORROIDS,ULCER YEARS AGO. History of Any Multi-Drug Resistant Organisms: None Reported Past Surgical History: Back Surgery, Cholecystectomy, Heart Catheterization, Hysterectomy, Orthopedic Surgery Additional Past Surgical History / Comment(s): MARGA BSO 2002. PÉREZ SHOULDER SURG. PÉREZ KNEE SURG. carpal tunnel RELEASE, RT KNEE WAS SHATTERED HAD SX TO REPAIR, LT KNEE ARTHROSCOPY/MENISCUS SX, COLONOSCOPY 2021(next after 5yr). Left shoulder replacement. RT TKA-10/08/23 Past Anesthesia/Blood Transfusion Reactions: No Reported Reaction Additional Past Anesthesia/Blood Transfusion Reaction / Comment(s): no hx blood transfusion Smoking Status: Former smoker - Past Family History Mother Family Medical History: Cancer Additional Family Medical History / Comment(s): Colon cancer. Parkinson's disease. A maternal aunt had breast cancer. Father Family Medical History: Cancer Additional Family Medical History / Comment(s): Lungs cancer. A paternal aunt had breast cancer. Medications and Allergies Home Medications Medication Instructions Recorded Confirmed Type DULoxetine HCL [Cymbalta] 60 mg PO BID 01/08/16 11/08/23 History Hydrocodone/Acetaminophen [[place] 2 each PO BID PRN 02/28/22 11/08/23 History 5-325] amLODIPine [Norvasc] 5 mg PO DAILY 11/15/22 11/08/23 History Pramipexole Di-HCl [Mirapex] 1.5 mg PO HS 11/08/23 11/08/23 History Allergies Allergy/AdvReac Type Severity Reaction Status Date / Time aspirin AdvReac Nausea Verified 11/08/23 17:27 ibuprofen [From Motrin] AdvReac Nausea Verified 11/08/23 17:27 morphine AdvReac Vomiting Verified 11/08/23 17:27 Surgical - Exam Vital Signs Temp Pulse Resp BP Pulse Ox 97 F L 78 20 146/75 96 11/14/23 12:03 11/14/23 12:03 11/14/23 12:03 11/14/23 12:03 11/14/23 12:03 Physical exam: General: Well-developed, well-nourished HEENT: Normocephalic, sclerae nonicteric Abdomen: Nontender, nondistended Extremities: No edema Neuro: Alert and oriented Assessment and Plan (1) Colitis Narrative/Plan: Will proceed with colonoscopy at this time. Current Visit: Yes Status: Acute Code(s): K52.9 - NONINFECTIVE GASTROENTERITIS AND COLITIS, UNSPECIFIED SNOMED Code(s): 61738772
--- NOTE | 2023-11-14 13:01 | P.PCN ---
Date of Procedure: 11/14/23 Procedure(s) Performed: PREOPERATIVE DIAGNOSIS: Change in bowel habits, colitis POSTOPERATIVE DIAGNOSIS: Tortuous colon, otherwise normal PROCEDURE: Colonoscopy ANESTHESIA: MAC SURGEON: Mike Freitas M.D. SPECIMENS: None ENDOSCOPIC PROCEDURE: The patient was placed on the endoscopy table in the left decubitus position. The Olympus colonoscope was inserted into the anus and passed under direct visualization region of the right colon. I could not visualize the cecum with certainty. We came to a tight turn where there appeared to be no further lumen however I could not visualize the valve or the appendiceal orifice with certainty. Numerous position changes and abdominal wall pressures were attempted and I could not visualize the cecum with certainty. The scope was withdrawn from this point. There were no visualized abnormalities throughout the right colon, transverse, descending, sigmoid, or rectum. There was no visible diverticulosis. There was no signs of colitis. Digital rectal examination was normal. The patient was taken to the recovery room in stable condition per anesthesia guidelines. RECOMMENDATIONS: Resume diet. Repeat colonoscopy 5 years given the patient's family history of colon cancer.
[2023-11-14 13:25] VITALS: BP 125/74; PULSE 77; RESP 16
== END 2023-11-14 13:45 | disposition home or self-care (01) ==
LOC: ORWHC2ENDO 11:43
PROVIDERS: ATTEND Surgery
DX: K56.2 Volvulus (principal); Z80.0 Family history of malignant neoplasm of digestive organs; Z87.19 Personal history of other diseases of the digestive system; J43.9 Emphysema, unspecified; M79.7 Fibromyalgia; I10 Essential (primary) hypertension; M19.90 Unspecified osteoarthritis, unspecified site; G25.81 Restless legs syndrome; Z79.899 Other long term (current) drug therapy; Z88.6 Allergy status to analgesic agent; Z88.5 Allergy status to narcotic agent
CPT/HCPCS: 45378

== ENCOUNTER → 2023-11-22 | Outpatient (CLI) | payer MEDICARE ==
--- NOTE | 2023-11-22 13:35 | MM ---
Reason for Exam: Screening (asymptomatic). Last mammogram was performed 1 year(s) and 1 month(s) ago. Patient History: Menarche at age 13. First Full-Term at age 26. Left ovary removed at age 48. Right ovary removed at age 48. Hysterectomy at age 48. Postmenopausal. Estrogen for 11 years, 1 month, from age 48 until age 59. Paternal aunt had breast cancer, age 40. Maternal aunt had breast cancer, age 40. Risk Values: Suellen 5 year model risk: 1.9%. NCI Lifetime model risk: 6.2%. Prior Study Comparison: 09/22/2021 Bilateral MG 3D screening mammo w/cad, [facility]. 11/15/2022 Bilateral MG 3D screening mammo w/cad, [facility]. 11/23/2022 Left MG 3D work up w/cad , [facility]. Tissue Density: There are scattered areas of fibroglandular density. Findings: Analyzed By CAD. Right breast: There is no suspicious group of microcalcifications or new suspicious mass. Left breast: There is no suspicious group of microcalcifications or new suspicious mass. No abnormality correlates with area of pain. Overall Assessment: Incomplete: need additional imaging evaluation, BI-RAD 0 Management: Diagnostic Breast Ultrasound of the left breast. Ultrasound imaging for area of concern in the left breast. [facility] will attempt to contact patient to return for supplemental views and ultrasound if indicated. Patient should continue monthly self-breast exams. A clinical breast exam by your physician is recommended on an annual basis. This exam should not preclude additional follow-up of suspicious palpable abnormalities. Note on Suellen scores and lifetime risk: 1. A Suellen score greater than 3% is considered moderate risk. If this is the case, consider specialist referral to assess eligibility for a risk reducing agent. 2. If overall lifetime risk for the development of breast cancer is 20% or higher, the patient may qualify for future screening with alternating mammogram and breast MRI. [facility], , 11/22/2023 1:32 PM. Electronically signed and approved by: Donavon Wetzel DO
== END | disposition home or self-care (01) ==
LOC: RADMAMWWP 12:47
PROVIDERS: ATTEND Family Medicine
DX: Z12.31 Encounter for screening mammogram for malignant neoplasm of breast
CPT/HCPCS: 77063; 77067

== ENCOUNTER → 2023-11-24 | Outpatient (CLI) | payer MEDICARE ==
--- NOTE | 2023-11-24 10:34 | USB ---
Reason for Exam: Clinical finding. Patient History: Menarche at age 13. First Full-Term at age 26. Left ovary removed at age 48. Right ovary removed at age 48. Hysterectomy at age 48. Postmenopausal. Estrogen for 11 years, 1 month, from age 48 until age 59. Paternal aunt had breast cancer, age 40. Maternal aunt had breast cancer, age 40. Risk Values: Suellen 5 year model risk: 1.9%. NCI Lifetime model risk: 6.2%. Technique: Method: Targeted. Prior Study Comparison: 11/15/2022 Bilateral MG 3D screening mammo w/cad, [facility]. 11/23/2022 Left US breast workup limited LT, [facility]. 11/23/2022 Left MG 3D work up w/cad LT, [facility]. 11/22/2023 Bilateral MG 3D screening mammo w/cad, [facility]. Findings: The lateral section of the breast of the left breast, the axilla of the left breast and the retroareolar of the left breast were scanned. No solid or cystic masses are identified.. Overall Assessment: Negative, BI-RAD 1 Management: Screening Mammogram of both breasts in 1 year. A clinical breast exam by your physician is recommended on an annual basis and results should be correlated with mammographic findings. This exam should not preclude additional follow-up of suspicious palpable abnormalities. Results were given to the patient verbally at the time of exam. [facility], , 11/24/2023 10:31 AM. Electronically signed and approved by: Alen Blackburn M.D. Radiologis
== END | disposition home or self-care (01) ==
LOC: RADUSWWP 09:50
PROVIDERS: ATTEND Family Medicine
DX: R92.8 Other abnormal and inconclusive findings on diagnostic imaging of breast

== ENCOUNTER 2023-11-27 16:35 | Emergency (ER) | payer MEDICARE ==
[2023-11-27 18:27] LABS: ALT 18 U/L (4-34); AST 25 U/L (14-36); African American GFR (CKD) >90 (>60 ml/min/1.73 sqM); Albumin 4.6 g/dL (3.5-5.0); Alkaline Phosphatase 83 U/L (38-126); Amylase 49 U/L (30-110); Anion Gap 5 mmol/L; Blood Urea Nitrogen 11 mg/dL (7-17); Calcium 10.1 mg/dL (8.4-10.2); Carbon Dioxide 28 mmol/L (22-30); Chloride 102 mmol/L (98-107); Glucose 125 mg/dL (74-99); Lipase 55 U/L (23-300); Non-African American GFR(CKD) >90 (>60 ml/min/1.73 sqM); Potassium 4.4 mmol/L (3.5-5.1); Sodium 135 mmol/L (137-145); Total Bilirubin 0.4 mg/dL (0.2-1.3); Total Protein 7.4 g/dL (6.3-8.2)
[2023-11-27 18:34] LABS: Basophils % (A) 0 %; Eosinophils # (A) 0.3 k/uL (0-0.7); Eosinophils % (A) 4 %; HCT 40.2 % (34.0-46.0); HGB 13.4 gm/dL (11.4-16.0); Lymphocytes # (A) 2.3 k/uL (1.0-4.8); Lymphocytes % (A) 28 %; MCH 30.9 pg (25.0-35.0); MCHC 33.3 g/dL (31.0-37.0); Monocytes # (A) 0.4 k/uL (0-1.0); Monocytes % (A) 4 %; Neutrophils % (A) 62 %; Platelet Count 410 k/uL (150-450); RBC 4.33 m/uL (3.80-5.40); RDW 13.4 % (11.5-15.5); WBC 8.1 k/uL (3.8-10.6)
--- NOTE | 2023-11-27 19:41 | CT ---
EXAMINATION TYPE: CT abdomen pelvis w con CT DLP: 876.5 mGycm, Automated exposure control for dose reduction was used. DATE OF EXAM: 11/27/2023 7:31 PM COMPARISON: CT abdomen 07/03/2022. CLINICAL INDICATION:Female, 68 years old with history of LLQ ab pain; LLQ pain. TECHNIQUE: Axial CT of the abdomen and pelvis. Sagittal and coronal reformats were created on a [employer] workstation. Contrast used:100 ml mL of Isovue 370 with IV Contrast, (none if empty) Oral contrast used: without Oral Contrast (none if empty) FINDINGS: LOWER CHEST: Unremarkable ABDOMEN LIVER: Unremarkable GALLBLADDER AND BILE DUCTS: The gallbladder is surgically absent. No evidence of biliary duct dilatio n. PANCREAS: Unremarkable. SPLEEN: Unremarkable. ADRENAL GLANDS: Unremarkable. KIDNEYS AND URETERS: No evidence of hydronephrosis or renal calculus. The ureters are unremarkable. PELVIS BLADDER: Unremarkable REPRODUCTIVE: Unremarkable. ABDOMEN & PELVIS STOMACH AND BOWEL: Stomach and duodenum are unremarkable. No evidence of bowel obstruction. PERITONEUM/RETROPERITONEUM: No evidence of pneumoperitoneum or free fluid. VASCULATURE: Mild atherosclerotic calcifications are present throughout the abdominal aorta and its b ranches. No evidence of aortic aneurysm. MUSCULOSKELETAL: Posterior fusion changes are seen at the L4-S1 level with persistent grade 1 anterol isthesis of L4 on L5. LYMPH NODES: No gross evidence for lymphadenopathy. SOFT TISSUE/ABDOMINAL WALL: Unremarkable IMPRESSION: No acute intra-abdominal process. [facility], , 11/27/2023 7:38 PM
--- NOTE | 2023-11-27 19:46 | ED ---
Abdominal Pain HPI - General Chief Complaint: Abdominal Pain Stated Complaint: Abd pain, leg pain Time Seen by Provider: 11/27/23 16:50 Source: patient, RN notes reviewed Mode of arrival: ambulatory Limitations: no limitations - History of Present Illness Initial Comments: This is a 60-year-old female presents emergency department chief complaint of left lower quadrant abdominal pain over the past 3 days. Patient states that she has been having harder than usual bowel movements as well causing her to strain for these bowel movements. She denies fevers, chills, nausea, vomiting, urinary symptoms. Patient had a recent colonoscopy completed with Dr. 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 She denies hematochezia, melena. Denies previous history of diverticulitis or diverticulosis. - Related Data Home Medications Medication Instructions Recorded Confirmed DULoxetine HCL [Cymbalta] 60 mg PO BID 01/08/16 11/08/23 Hydrocodone/Acetaminophen [[place] 2 each PO BID PRN 02/28/22 11/08/23 5-325] amLODIPine [Norvasc] 5 mg PO DAILY 11/15/22 11/08/23 Pramipexole Di-HCl [Mirapex] 1.5 mg PO HS 11/08/23 11/08/23 Allergies Allergy/AdvReac Type Severity Reaction Status Date / Time aspirin AdvReac Nausea Verified 11/27/23 16:48 ibuprofen [From Motrin] AdvReac Nausea Verified 11/27/23 16:48 morphine AdvReac Vomiting Verified 11/27/23 16:48 Review of Systems ROS Statement: Those systems with pertinent positive or pertinent negative responses have been documented in the HPI. ROS Other: All systems not noted in ROS Statement are negative. Past Medical History Past Medical History: Chest Pain / Angina, COPD, Fibromyalgia, GI Bleed, Hypertension, Osteoarthritis (OA) Additional Past Medical History / Comment(s): Emphysema. DEAF RT EAR. DDD IN BACK, RLS, RT URETERAL CALCULUS. COLON POLYPS-NEG, DIVERTICULOSIS, HEMORROID S,ULCER YEARS AGO. History of Any Multi-Drug Resistant Organisms: None Reported Past Surgical History: Back Surgery, Cholecystectomy, Heart Catheterization, Hysterectomy, Orthopedic Surgery Additional Past Surgical History / Comment(s): MARGA BSO 2002. PÉREZ SHOULDER SURG. PÉREZ KNEE SURG. carpal tunnel RELEASE, RT KNEE WAS SHATTERED HAD SX TO REPAIR, LT KNEE ARTHROSCOPY/MENISCUS SX, COLONOSCOPY 2021(next after 5yr). Left sh oulder replacement. RT TKA-10/08/23 Past Anesthesia/Blood Transfusion Reactions: No Reported Reaction Additional Past Anesthesia/Blood Transfusion Reaction / Comment(s): no hx blood transfusion Past Psychological History: No Psychological Hx Reported Smoking Status: Former smoker Past Alcohol Use History: Occasional Past Drug Use History: Marijuana - Past Family History Mother Family Medical History: Cancer Additional Family Medical History / Comment(s): Colon cancer. Parkinson's disease. A maternal aunt had breast cancer. Father Family Medical History: Cancer Additional Family Medical History / Comment(s): Lungs cancer. A paternal aunt had breast cancer. General Exam Limitations: no limitations General appearance: alert, in no apparent distress Eye exam: Present: normal appearance, PERRL, EOMI. Absent: scleral icterus, conjunctival injection, periorbital swelling ENT exam: Present: normal exam, mucous membranes moist Respiratory exam: Present: normal lung sounds bilaterally. Absent: respiratory distress, wheezes, rales, rhonchi, stridor Cardiovascular Exam: Present: regular rate, normal rhythm, normal heart sounds. Absent: systolic murmur, diastolic murmur, rubs, gallop, clicks GI/Abdominal exam: Present: soft, tenderness (left-side abdomen), normal bowel sounds. Absent: distended, guarding, rebound, rigid Extremities exam: Present: normal inspection, full ROM, normal capillary refill. Absent: tenderness, pedal edema, joint swelling, calf tenderness Back exam: Present: normal inspection Skin exam: Present: warm, dry, intact, normal color. Absent: rash Course Vital Signs 11/27/23 11/27/23 16:45 20:36 Temperature 98.2 F 98.4 F Pulse Rate 64 71 Respiratory 16 18 Rate Blood Pressure 145/95 126/78 O2 Sat by Pulse 95 99 Oximetry Medical Decision Making - Medical Decision Making Was pt. sent in by a medical professional or institution (, PA, BEHAVIORAL PSYCHOLOGIST, urgent care, hospital, or assisted...) When possible be specific @ -No Did you speak to anyone other than the patient for history (EMS, parent, family, police, friend...)? What history was obtained from this source @ -No Did you review nursing and triage notes (agree or disagree)? Why? @ -I reviewed and agree with nursing and triage notes Were old charts reviewed (outside hosp., previous admission, EMS record, old EKG, old radiological studies, urgent care reports/EKG's, assisted records)? Report findings @ -No old charts were reviewed Differential Diagnosis (chest pain, altered mental status, abdominal pain women, abdominal pain men, vaginal bleeding, weakness, fever, dyspnea, syncope, headache, dizziness, GI bleed, back pain, seizure, CVA, palpatations, mental health, musculoskeletal)? @ -Differential Abdominal Pain Women: Appendicitis, Cholecystitis, diverticulosis, ischemic bowel, pancreatitis, hepatitis, UTI, gastroenteritis, AAA, incarcerated hernia, bowel obstruction, constipation, inflammatory bowel, hepatitis, peptic ulcer disease, splenic infarction, perforated viscus, vulvitis, ovarian torsion, PID, kidney stone, placenta abruption, this is not meant to be an all-inclusive list EKG interpreted by me (3pts min.). @ -None X-rays interpreted by me (1pt min.). @ -None done CT interpreted by me (1pt min.). @ - CT of the abdomen and pelvis with IV contrast reveals no acute intra- abdominal process U/S interpreted by me (1pt. min.). @ -None done What testing was considered but not performed or refused? (CT, X-rays, U/S, labs)? Why? @ -None What meds were considered but not given or refused? Why? @ -None Did you discuss the management of the patient with other professionals (pro fessionals i.e. , PA, BEHAVIORAL PSYCHOLOGIST, lab, RT, psych nurse, social media editor, account specialist, teacher, air defence officer, lead case manager)? Give summary @ -No Was smoking cessation discussed for >3mins.? @ -No Was critical care preformed (if so, how long)? @ -No Were there social determinants of health that impacted care today? How? (Homelessness, low income, unemployed, alcoholism, drug addiction, transportation, low edu. Level, literacy, decrease access to med. care, halfway, rehab)? @ -No Was there de-escalation of care discussed even if they declined (Discuss DNR or withdrawal of care, Hospice)? DNR status @ -No What co-morbidities impacted this encounter? (DM, HTN, Smoking, COPD, CAD, Cancer, CVA, ARF, Chemo, Hep., AIDS, mental health diagnosis, sleep apnea, morbid obesity)? @ -None Was patient admitted / discharged? Hospital course, mention meds given and route, prescriptions, significant lab abnormalities, going to OR and other pertinent info. @ - discharged. 68-year-old female with left lower quadrant abdominal pain. Patient's vitals are stable and she is resting comfortably no signs of acute distress on my evaluation. Patient's abdomen is tender to palpation of the left side of the abdomen with no signs of rebound tenderness or rigidity. She is provided with analgesics pending laboratory results and CT imaging. She is in agreement with this plan. CBC, CMP unremarkable, lactic acid nonelevated at 1.6, amylase lipase within normal limits. CT of the abdomen and pelvis no acute intra-abdominal process. At this time there is a benign abdominal workup and no evidence for acute process. Patient is stable for discharge with unspecified abdominal pain. Recommend that she follows up with general surgeon as she reports that the surgeon recommended she follow-up with him if she continues to have abdominal pain. All questions answered at bedside strict return parameters discussed with the patient she is verbalized understanding. Case discussed with Dr. Weber Undiagnosed new problem with uncertain prognosis? @ -No Drug Therapy requiring intensive monitoring for toxicity (Heparin, Nitro, Insulin, Cardizem)? @ -No Were any procedures done? @ -No Diagnosis/symptom? @ -unspecified abdominal pain Acute, or Chronic, or Acute on Chronic? @ -Acute Uncomplicated (without systemic symptoms) or Complicated (systemic symptoms)? @ -Uncomplicated Side effects of treatment? @ -No Exacerbation, Progression, or Severe Exacerbation? @ -No Poses a threat to life or bodily function? How? (Chest pain, [place], VA, pneumonia, PE, COPD, DKA, ARF, appy, cholecystitis, CVA, Diverticulitis, Homicidal, Suicidal, threat to staff... and all critical care pts) @ -No - Lab Data Result diagrams: 11/27/23 18:00 11/27/23 18:00 Lab Results 11/27/23 11/27/23 11/27/23 Range/Units 18:00 18:00 18:00 WBC 8.1 (3.8-10.6) k/uL RBC 4.33 (3.80-5.40) m/uL Hgb 13.4 (11.4-16.0) gm/dL Hct 40.2 (34.0-46.0) % MCV 93.0 (80.0-100.0) fL MCH 30.9 (25.0-35.0) pg MCHC 33.3 (31.0-37.0) g/dL RDW 13.4 (11.5-15.5) % Plt Count 410 (150-450) k/uL MPV 8.0 Neutrophils % 62 % Lymphocytes % 28 % Monocytes % 4 % Eosinophils % 4 % Basophils % 0 % Neutrophils # 5.0 (1.3-7.7) k/uL Lymphocytes # 2.3 (1.0-4.8) k/uL Monocytes # 0.4 (0-1.0) k/uL Eosinophils # 0.3 (0-0.7) k/uL Basophils # 0.0 (0-0.2) k/uL Sodium 135 L (137-145) mmol/L Potassium 4.4 (3.5-5.1) mmol/L Chloride 102 (98-107) mmol/L Carbon Dioxide 28 (22-30) mmol/L Anion Gap 5 mmol/L BUN 11 (7-17) mg/dL Creatinine 0.67 (0.52-1.04) mg/dL Est GFR (CKD-EPI)AfAm >90 (>60 ml/min/1.73 sqM) Est GFR (CKD-EPI)NonAf >90 (>60 ml/min/1.73 sqM) Glucose 125 H (74-99) mg/dL Plasma Lactic Acid Fabio 1.6 (0.7-2.0) mmol/L Calcium 10.1 (8.4-10.2) mg/dL Total Bilirubin 0.4 (0.2-1.3) mg/dL AST 25 (14-36) U/L ALT 18 (4-34) U/L Alkaline Phosphatase 83 (38-126) U/L Total Protein 7.4 (6.3-8.2) g/dL Albumin 4.6 (3.5-5.0) g/dL Amylase 49 (30-110) U/L Lipase 55 (23-300) U/L Disposition Clinical Impression: Abdominal pain Disposition: HOME SELF-CARE Condition: Good Instructions (If sedation given, give patient instructions): Abdominal Pain (ED) Additional Instructions: Please return to the Emergency Department if symptoms worsen or any other concerns. Recommend that you follow-up outpatient with your GI specialist and primary care provider for further evaluation. Is patient prescribed a controlled substance at d/c from ED?: No Referrals: Chente Connell MD [Primary Care Provider] - 1-2 days Time of Disposition: 20:20
[2023-11-27] MEDS: HYDROmorphone 0.5 MG/0.5 ML SYRINGE IVP STA (20:21)
[2023-11-27 20:38] VITALS: BP 126/78; PULSE 71; RESP 18; TEMP 98.4
== END 2023-11-27 20:36 | disposition home or self-care (01) ==
LOC: EC 16:35
CPT/HCPCS: 36415; 74177; 80053; 82150; 83605; 83690; 85025; 96374; 99284